=== PATIENT | female | born 1990 | race Caucasian/White ===

== ENCOUNTER 2016-07-03 14:03 | Inpatient (IN) | payer OTHER ==
[2016-07-03 17:43] VITALS: BMI 28.7
--- NOTE | 2016-07-03 18:10 | HP ---
Admission ROS S - [facility] Chief Complaint: I WANT TO GO TO REHAB Allergies/Adverse Reactions: Allergies Allergy/AdvReac Type Severity Reaction Status Date / Time Penicillins Allergy Rash Verified 06/17/16 13:36 haloperidol lactate AdvReac Severe stiffness Verified 06/17/16 13:36 [From Haldol] risperidone [From Risperdal] AdvReac Difficulty Verified 06/17/16 13:36 Breathing History of Present Illness: 25 YEARS OLD FEMALE WITH LONG HISTORY OF ALCOHOL NICOTINE DEPENDENCE DENIES MEDICAL HAS BIPOLAR IS ADMITTED TO REHAB Exam Limitations: No Limitations - Ebola screening Have you traveled outside of the country in the last 21 days: No Have you had contact with anyone from an Ebola affected area: No Have you been sick,other than usual withdrawal symptoms: No Do you have a fever: No - Review of Systems Constitutional: Weight Stable EENT: reports: No Symptoms Reported Respiratory: reports: Cough Cardiac: reports: Palpitations GI: reports: No Symptoms Reported : reports: Flank Pain Musculoskeletal: reports: Back Pain (FREQUENT FALL RELATED TO ALCOHOL INTOX) Integumentary: reports: Change in Color (FEET AXILLARIES) Neuro: reports: No Symptoms reported Endocrine: reports: No Symptoms Reported Hematology: reports: No Symptoms Reported Psychiatric: reports: Judgement Intact, Orientated x3, Anxious, Depressed Other Systems: Reviewed and Negative Patient History - Patient Medical History Hx Anemia: No Hx Asthma: Yes (Uses Albuterol Inhaler.) Hx Chronic Obstructive Pulmonary Disease (COPD): No Hx Cancer: No Hx Cardiac Disorders: No Hx Congestive Heart Failure: No Hx Hypertension: No Hx Hypercholesterolemia: No Hx Pacemaker: No HX Cerebrovascular Accident: No Hx Seizures: No Hx Dementia: No Hx Diabetes: No Hx Gastrointestinal Disorders: No Hx Liver Disease: No Hx Genitourinary Disorders: No Hx Sexually Transmitted Disorders: No Hx Renal Disease (ESRD): No Hx Thyroid Disease: No Hx Human Immunodeficiency Virus (HIV): No (Last tested: 05/2016: NEGATIVE.) Hx Hepatitis C: No (Last tested: 05/2016: NEGATIVE.) Hx Depression: No Hx Suicide Attempt: No (DENIES; AND DENIES CURRENT SI / HI.) Hx Bipolar Disorder: Yes Hx Schizophrenia: No - Patient Surgical History Past Surgical History: No - PPD History Previous Implant?: Yes Documented Results: Negative w/proof Implanted On Prior R Admission?: Yes Date: 05/18/16 Results: 0 mm PPD to be Administered?: No - Reproductive History Patient is a Female of Child Bearing Age (11 -55 yrs old): No Last Menstrual Period: 05/03/16 (DEPT SHOOT) Patient : No - Smoking Cessation Smoking history: Current every day smoker Have you smoked in the past 12 months: Yes Aproximately how many cigarettes per day: 3 Cigars Per Day: 0 Hx Chewing Tobacco Use: No Initiated information on smoking cessation: Yes 'Breaking Loose' booklet given: 07/03/16 - Substance & Tx. History Hx Alcohol Use: Yes Hx Substance Use: No Substance Use Type: Alcohol, Cocaine Hx Substance Use Treatment: Yes - Substances Abused Alcohol Route: Oral Frequency: Daily Amount used: QUAT DELMER Age of first use: 10 Date of Last Use: 06/28/16 Family Disease History - Family Disease History Family Disease History: Diabetes: Grandparent (LIVER CANCER-), Heart Disease: Father (Hx. Sub. Use; Heart surgery.), Brother (Genetic Defect.), CA: Grandparent, Other: Son (Panic Attacks.) Admission Physical Exam S - Vital Signs Vital Signs: Vital Signs - 24 hr 07/03/16 17:40 Temperature 98.7 F Pulse Rate 91 H Respiratory 18 Rate Blood Pressure 118/75 - Physical General Appearance: Yes: No Apparent Distress, Nourished, Appropriately Dressed HEENTM: Yes: Hearing grossly Normal, Normal ENT Inspection, Normocephalic, Normal Voice Respiratory: Yes: Chest Non-Tender, Lungs Clear, Normal Breath Sounds, No Respiratory Distress, No Accessory Muscle Use Neck: Yes: Supple, Trachea in good position Breast: Yes: Breasts Symetrical Cardiology: Yes: Regular Rhythm, S1, S2, Tachycardia Abdominal: Yes: Non Tender, Soft Genitourinary: Yes: Within Normal Limits Back: Yes: Normal Inspection Musculoskeletal: Yes: full range of Motion, Gait Steady Extremities: Yes: Normal Inspection, Normal Range of Motion, Non-Tender Neurological: Yes: Fully Oriented, Alert, Motor Strength 5/5, Normal Response, Depressed Affect Integumentary: Yes: Normal Color, Warm Lymphatic: Yes: Within Normal Limits - Diagnostic (1) Alcohol dependence with uncomplicated withdrawal Current Visit: Yes Status: Acute (2) Asthma Current Visit: Yes Status: Acute Qualifiers: Asthma severity: mild intermittent Asthma complication type: uncomplicated Qualified Code(s): J45.20 - Mild intermittent asthma, uncomplicated (3) Bipolar II disorder Current Visit: Yes Status: Suspected (4) Nicotine dependence Current Visit: Yes Status: Acute Qualifiers: Nicotine product type: cigarettes Substance use status: uncomplicated Qualified Code(s): F17.210 - Nicotine dependence, cigarettes, uncomplicated (5) Fungal dermatosis Current Visit: Yes Status: Acute Cleared for Admission [facility] - Detox or Rehab [facility] Level of Care: Observation Bed Claeared for Rehab Admission: Yes [facility] Breath Alcohol Content Breath Alcohol Content: 0 Urine Drug Screen - Results Drug Screen Negative: No Urine Drug Screen Results: ALTAGRACIA-Cocaine, BZO-Benzodiazepines
[2016-07-03] MEDS ORDERED: MAGNESIUM HYDROX 2400MG/30ML ORAL SUSPENSION 30 ML CUP PO PRN (18:18)
[2016-07-03] MEDS ORDERED: P-EPHED 60MG/TRIPROLIDI 2.5MG TABLET PO PRN (18:18)
[2016-07-03] MEDS ORDERED: ACETAMINOPHEN 325 MG TABLET (FP) PO PRN (18:18)
[2016-07-03] MEDS ORDERED: NICOTINE 14 MG/24 HOURS TOPICAL PATCH TD PRN (18:18)
[2016-07-03] MEDS ORDERED: guaiFENesin/D-METHORPHAN HB 10 ML UNIT-DOSE CUPS PO PRN (18:18)
[2016-07-03] MEDS ORDERED: NICOTINE POLACRILEX 2 MG GUM BC PRN (18:18)
[2016-07-03] MEDS ORDERED: LOPERAMIDE HCL 2 MG CAPSULE PO PRN (18:18)
[2016-07-03] MEDS ORDERED: MAGNESIUM CITRATE 300 ML BOTTLE PO PRN (18:18)
[2016-07-03] MEDS ORDERED: MAG HYDROX/AL HYDROX/SIMETH 30 ML UNIT-DOSE CUP PO PRN (18:18)
[2016-07-03] MEDS ORDERED: MENTHOL/PHENOL 1 EACH UD MM PRN (18:18)
[2016-07-03] MEDS ORDERED: hydrOXYzine PAMOATE 50 MG CAPSULE (FP) PO PRN (18:18)
[2016-07-03] MEDS ORDERED: COLLOIDAL OATMEAL 1 BAR EACH TP PRN (18:21)
[2016-07-03] MEDS ORDERED: ALBUTEROL SO4 6.7 GM HFA INHALER IH PRN (18:27)
[2016-07-03] MEDS ORDERED: DOCUSATE SODIUM 100 MG CAPSULE (FP) PO PRN (18:27)
[2016-07-03] MEDS ORDERED: ALBUTEROL SO4 2.5/IPRATROPIUM 0.5 INH SOL 3 ML VIAL.NEB. NEB PRN (18:27)
[2016-07-03] MEDS: THIAMINE HCL 100 MG TABLET (FP) PO SCH (22:58)
[2016-07-03] MEDS: CLOTRIMAZOLE 1% CREAM 15 GM TUBE TP SCH (22:58)
[2016-07-03] MEDS: diphenhydrAMINE HCL 50 MG CAPSULE PO PRN (22:58)
[2016-07-03] MEDS: MINERAL OIL/PETROLAT/WATER TOPICAL CREAM 113 GM JAR TP SCH (22:59)
[2016-07-03 23:05] LABS: URINE APPEARANCE CLEAR; URINE BILIRUBIN NEGATIVE (NEGATIVE); URINE BLOOD NEGATIVE (NEGATIVE); URINE COLOR STRAW; URINE GLUCOSE (UA) NEGATIVE (NEGATIVE); URINE KETONE NEGATIVE (NEGATIVE); URINE LEUK ESTERASE NEGATIVE (NEGATIVE); URINE NITRITE NEGATIVE (NEGATIVE); URINE PROTEIN NEGATIVE (NEGATIVE); URINE UROBILINOGEN NEGATIVE E.U./dl (0.2-1.0)
--- NOTE | 2016-07-04 10:03 | HP ---
[id number] Identifying data: This is the third admission to [address] [place] [address] for this 25 years old H female single mother of 2(children reside with the patient's father).patient is unemployed,supported by [facility], resides with family. Medical History: Significant for BA. Psychiatric History: First contact with psychiatrist since childhood due to behavioral problems.Reports first psychiatric hospitalization at 10 years old provoked by agitation,anger issues,mood instability.[facility]She was placed on psychotropics.Patient reports 4 more psychiatric admissions.Most recent admission was in 2016 to [facility] in [facility].She is currently under psychiatric care at [facility].Medications:Seroquel 50 mg po hs. Vital Signs: Vital Signs - 24 hr 07/03/16 07/04/16 07/04/16 17:40 00:30 03:30 Temperature 98.7 F Pulse Rate 91 H Respiratory 18 18 18 Rate Blood Pressure 118/75 07/04/16 07:53 Temperature 97.2 F L Pulse Rate 87 Respiratory 18 Rate Blood Pressure 114/74 Allergies/Adverse Reactions: Allergies Allergy/AdvReac Type Severity Reaction Status Date / Time Penicillins Allergy Rash Verified 07/03/16 18:35 haloperidol lactate AdvReac Severe stiffness Verified 07/03/16 18:35 [From Haldol] risperidone [From Risperdal] AdvReac Difficulty Verified 07/03/16 18:35 Breathing Date of last physical exam: 07/03/16 Concur with the findings of this exam: Yes - Substance Abuse/Tx History Hx Alcohol Use: Yes (reports drinking since 10 yo,mostly beer,whiskey) Hx Substance Use: Yes (marijuana since school age) Substance Use Type: Alcohol, Cocaine Hx Substance Use Treatment: Yes (left AMA this program in May 2016) - Admission Criteria Previous failed treatment: Yes Poor recovery environment: Yes Comorbidities: Yes Lacks judgement: Yes Mental Status Exam - Mental Status Exam Alert and Oriented to: Time, Place, Person Cognitive Function: Grossly Intact Patient Appearance: Well Groomed Mood: Suspicious, Anxious Affect: Labile Patient Behavior: Cooperative Speech Pattern: Clear Voice Loudness: Normal Thought Process: Goal Oriented Thought Disorder: Being Controlled Hallucinations: Denies Suicidal Ideation: Denies Homicidal Ideation: Denies Insight/Judgement: Fair Sleep: Difficulty falling asleep Appetite: Good Muscle strength/Tone: Normal Gait/Station: Normal Psychiatric Findings - Problem List (Russell 1, 2,3) (1) Asthma Current Visit: Yes Status: Chronic Qualifiers: Asthma severity: mild intermittent Asthma complication type: uncomplicated Qualified Code(s): J45.20 - Mild intermittent asthma, uncomplicated (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 (3) Nicotine dependence Current Visit: Yes Status: Chronic Qualifiers: Nicotine product type: cigarettes Substance use status: uncomplicated Qualified Code(s): F17.210 - Nicotine dependence, cigarettes, uncomplicated (4) Bipolar II disorder Current Visit: Yes Status: Chronic (5) Alcohol dependence Current Visit: Yes Status: Chronic Qualifiers: Substance use status: in remission Qualified Code(s): F10.21 - Alcohol dependence, in remission (6) Cocaine dependence Current Visit: Yes Status: Chronic Qualifiers: Substance use status: uncomplicated Qualified Code(s): F14.20 - Cocaine dependence, uncomplicated - Initial Treatment Plan Initial Treatment Plan: Seroquel 50 mg po hs.Will monitor progress.
[2016-07-04] MEDS: PRENATAL VITAMINS W/ FOLIC ACID TABLET (FP) PO SCH (10:45)
[2016-07-04 11:23] LABS: MCHC 34.1 g/dl (32.0-36.0); MEAN CELL VOLUME 88.1 fl (80-96); MEAN PLT VOLUME 7.5 fl (7.5-11.1); PLATELET COUNT 370 K/MM3 (134-434); RDW 13.8 % (11.6-15.6)
[2016-07-04] MEDS: CLOTRIMAZOLE 1% CREAM 15 GM TUBE TP SCH ×2 (11:25→21:33)
[2016-07-04 11:34] LABS: ALBUMIN 3.6 g/dl (3.4-5.0); ALK PHOS 99 U/L (45-117); ANION GAP 9 (8-16); BILIRUBIN,TOTAL 0.5 mg/dL (0.2-1.0); CALCIUM 9.2 mg/dL (8.5-10.1); CO2 27 mmol/L (21-32); CREATININE 0.9 mg/dL (0.55-1.02); GLUCOSE,RANDOM 92 mg/dL (74-106); SGOT/AST 15 U/L (15-37); SGPT/ALT 31 U/L (12-78); TOT PROT 7.2 g/dl (6.4-8.2)
[2016-07-04 13:16] LABS: HIV 1 & 2 AB NEGATIVE; HIV 1 AGp24 NEGATIVE
[2016-07-04] MEDS: MINERAL OIL/PETROLAT/WATER TOPICAL CREAM 113 GM JAR TP SCH (21:31)
[2016-07-04] MEDS: THIAMINE HCL 100 MG TABLET (FP) PO SCH (21:31)
[2016-07-04] MEDS: QUEtiapine FUMARATE 50 MG TABLET PO SCH (21:31)
[2016-07-05] MEDS: IBUPROFEN 400 MG TABLET (FP) PO PRN (09:45)
[2016-07-05] MEDS: CLOTRIMAZOLE 1% CREAM 15 GM TUBE TP SCH ×2 (09:46→22:11)
[2016-07-05] MEDS: PRENATAL VITAMINS W/ FOLIC ACID TABLET (FP) PO SCH (09:46)
[2016-07-05] MEDS: THIAMINE HCL 100 MG TABLET (FP) PO SCH (22:10)
[2016-07-05] MEDS: QUEtiapine FUMARATE 50 MG TABLET PO SCH (22:10)
[2016-07-05] MEDS: METHYL SALICYLATE/MENTHOL OINT 30 GM TUBE TP SCH (22:10)
[2016-07-05] MEDS: MINERAL OIL/PETROLAT/WATER TOPICAL CREAM 113 GM JAR TP SCH (22:12)
[2016-07-05] MEDS: SODIUM CHLORIDE NASAL SPRAY 44 ML BOTTLE NS SCH (22:14)
[2016-07-06] MEDS: CLOTRIMAZOLE 1% CREAM 15 GM TUBE TP SCH ×2 (10:55→21:53)
[2016-07-06] MEDS: METHYL SALICYLATE/MENTHOL OINT 30 GM TUBE TP SCH ×2 (10:55→21:53)
[2016-07-06] MEDS: PRENATAL VITAMINS W/ FOLIC ACID TABLET (FP) PO SCH (10:56)
[2016-07-06] MEDS: IBUPROFEN 400 MG TABLET (FP) PO PRN (10:57)
[2016-07-06] MEDS: SODIUM CHLORIDE NASAL SPRAY 44 ML BOTTLE NS SCH ×2 (11:00→21:53)
[2016-07-06] MEDS: MINERAL OIL/PETROLAT/WATER TOPICAL CREAM 113 GM JAR TP SCH (21:55)
[2016-07-06] MEDS: QUEtiapine FUMARATE 50 MG TABLET PO SCH (21:56)
[2016-07-06] MEDS: THIAMINE HCL 100 MG TABLET (FP) PO SCH (21:56)
[2016-07-06] MEDS: diphenhydrAMINE HCL 50 MG CAPSULE PO PRN (21:57)
[2016-07-07] MEDS: IBUPROFEN 400 MG TABLET (FP) PO PRN (08:43)
[2016-07-07] MEDS: PRENATAL VITAMINS W/ FOLIC ACID TABLET (FP) PO SCH (10:54)
[2016-07-07] MEDS: CLOTRIMAZOLE 1% CREAM 15 GM TUBE TP SCH ×2 (10:54→22:06)
[2016-07-07] MEDS: METHYL SALICYLATE/MENTHOL OINT 30 GM TUBE TP SCH ×2 (10:55→22:08)
[2016-07-07] MEDS: SODIUM CHLORIDE NASAL SPRAY 44 ML BOTTLE NS SCH ×2 (10:55→22:05)
[2016-07-07] MEDS: QUEtiapine FUMARATE 50 MG TABLET PO SCH (22:05)
[2016-07-07] MEDS: THIAMINE HCL 100 MG TABLET (FP) PO SCH (22:05)
[2016-07-07] MEDS: MINERAL OIL/PETROLAT/WATER TOPICAL CREAM 113 GM JAR TP SCH (22:08)
[2016-07-08] MEDS: CLOTRIMAZOLE 1% CREAM 15 GM TUBE TP SCH ×2 (10:52→21:53)
[2016-07-08] MEDS: PRENATAL VITAMINS W/ FOLIC ACID TABLET (FP) PO SCH (10:52)
[2016-07-08] MEDS: METHYL SALICYLATE/MENTHOL OINT 30 GM TUBE TP SCH ×2 (10:52→21:53)
[2016-07-08] MEDS: SODIUM CHLORIDE NASAL SPRAY 44 ML BOTTLE NS SCH ×2 (10:52→21:52)
[2016-07-08] MEDS: QUEtiapine FUMARATE 50 MG TABLET PO SCH (21:52)
[2016-07-08] MEDS: THIAMINE HCL 100 MG TABLET (FP) PO SCH (21:52)
[2016-07-08] MEDS: MINERAL OIL/PETROLAT/WATER TOPICAL CREAM 113 GM JAR TP SCH (21:54)
[2016-07-09] MEDS: SODIUM CHLORIDE NASAL SPRAY 44 ML BOTTLE NS SCH ×2 (10:33→21:42)
[2016-07-09] MEDS: PRENATAL VITAMINS W/ FOLIC ACID TABLET (FP) PO SCH (10:34)
[2016-07-09] MEDS: CLOTRIMAZOLE 1% CREAM 15 GM TUBE TP SCH ×2 (10:34→21:43)
[2016-07-09] MEDS: METHYL SALICYLATE/MENTHOL OINT 30 GM TUBE TP SCH ×2 (10:34→21:45)
[2016-07-09] MEDS: IBUPROFEN 400 MG TABLET (FP) PO PRN (10:44)
[2016-07-09] MEDS: THIAMINE HCL 100 MG TABLET (FP) PO SCH (21:42)
[2016-07-09] MEDS: QUEtiapine FUMARATE 50 MG TABLET PO SCH (21:42)
[2016-07-09] MEDS: MINERAL OIL/PETROLAT/WATER TOPICAL CREAM 113 GM JAR TP SCH (21:43)
[2016-07-09] MEDS: diphenhydrAMINE HCL 50 MG CAPSULE PO PRN (22:59)
[2016-07-10] MEDS: PRENATAL VITAMINS W/ FOLIC ACID TABLET (FP) PO SCH (10:10)
[2016-07-10] MEDS: CLOTRIMAZOLE 1% CREAM 15 GM TUBE TP SCH ×2 (10:11→21:49)
[2016-07-10] MEDS: METHYL SALICYLATE/MENTHOL OINT 30 GM TUBE TP SCH ×2 (10:11→21:50)
[2016-07-10] MEDS: SODIUM CHLORIDE NASAL SPRAY 44 ML BOTTLE NS SCH ×2 (10:11→21:49)
[2016-07-10] MEDS ORDERED: DOCUSATE SODIUM 100 MG CAPSULE (FP) PO ONE (14:28)
[2016-07-10] MEDS: QUEtiapine FUMARATE 50 MG TABLET PO SCH (21:48)
[2016-07-10] MEDS: THIAMINE HCL 100 MG TABLET (FP) PO SCH (21:48)
[2016-07-10] MEDS: DOCUSATE SODIUM 100 MG CAPSULE (FP) PO SCH (21:48)
[2016-07-10] MEDS: MINERAL OIL/PETROLAT/WATER TOPICAL CREAM 113 GM JAR TP SCH (21:49)
[2016-07-10] MEDS: diphenhydrAMINE HCL 50 MG CAPSULE PO PRN (22:44)
[2016-07-11 09:50] VITALS: BP 120/78; PULSE 101; TEMP 97.7
[2016-07-11] MEDS: DOCUSATE SODIUM 100 MG CAPSULE (FP) PO SCH (10:44)
[2016-07-11] MEDS: CLOTRIMAZOLE 1% CREAM 15 GM TUBE TP SCH (10:44)
[2016-07-11] MEDS: METHYL SALICYLATE/MENTHOL OINT 30 GM TUBE TP SCH (10:44)
[2016-07-11] MEDS: PRENATAL VITAMINS W/ FOLIC ACID TABLET (FP) PO SCH (10:44)
[2016-07-11] MEDS: SODIUM CHLORIDE NASAL SPRAY 44 ML BOTTLE NS SCH (10:44)
--- NOTE | 2016-07-11 15:00 | PN ---
[facility] Progress Note Note: PT. HAS HX. OF BORDERLINE DM. SHE TOOK METFORMIN FOR FEW MONTH THEN STOPPED BECAUSE BLOOD SUGAR WAS NORMAL. Laboratory Tests 07/03/16 07/04/16 07/04/16 21:58 06:30 06:30 WBC 9.0 D RBC 4.59 Hgb 13.8 Hct 40.5 MCV 88.1 MCHC 34.1 RDW 13.8 Plt Count 370 MPV 7.5 Sodium 140 Potassium 4.2 Chloride 104 Carbon Dioxide 27 Anion Gap 9 BUN 7 D Creatinine 0.9 Creat Clearance w eGFR > 60 POC Glucometer Random Glucose 92 Calcium 9.2 Total Bilirubin 0.5 D AST 15 D ALT 31 Alkaline Phosphatase 99 Total Protein 7.2 Albumin 3.6 Urine Color Straw Urine Appearance Clear Urine pH 7.0 Ur Specific [place] 1.008 Urine Protein Negative Urine Glucose (UA) Negative Urine Ketones Negative Urine Blood Negative Urine Nitrite Negative Urine Bilirubin Negative Urine Urobilinogen Negative Ur Leukocyte Esterase Negative RPR Titer HIV 1&2 Antibody Screen HIV P24 Antigen 07/04/16 07/04/16 07/11/16 06:30 08:30 09:48 WBC RBC Hgb Hct MCV MCHC RDW Plt Count MPV Sodium Potassium Chloride Carbon Dioxide Anion Gap BUN Creatinine Creat Clearance w eGFR POC Glucometer 131 Random Glucose Calcium Total Bilirubin AST ALT Alkaline Phosphatase Total Protein Albumin Urine Color Urine Appearance Urine pH Ur Specific [place] Urine Protein Urine Glucose (UA) Urine Ketones Urine Blood Urine Nitrite Urine Bilirubin Urine Urobilinogen Ur Leukocyte Esterase RPR Titer Nonreactive HIV 1&2 Antibody Screen Negative HIV P24 Antigen Negative P : BGM BID
--- NOTE | 2016-07-11 21:20 | PN ---
[facility] Progress Note Note: Patient left this program today(early discharge).Since she didnt want to [facility].She has met her treatment goals partially and will continue to address her issues on outpatient basis.Patient will continue current medications as per plan.Scripts for 30 days provided.Patient is stable for discharge today.
== END 2016-07-11 19:30 | disposition home or self-care (01) | DRG 772 ==
LOC: YASAS 14:03 → Y3E 19:42
PROVIDERS: ADMIT Psychiatry & Neurology Psychiatry; ATTEND Psychiatry & Neurology Psychiatry
PROC: HZ42ZZZ Group Counseling for Substance Abuse Treatment, Cognitive-Behavioral (ICD-10-PCS; principal; 2016-07-03)
DX: F10.20 Alcohol dependence, uncomplicated (principal); F14.20 Cocaine dependence, uncomplicated; F17.210 Nicotine dependence, cigarettes, uncomplicated; F31.81 Bipolar II disorder; J45.20 Mild intermittent asthma, uncomplicated; R73.03 Prediabetes; L98.8 Other specified disorders of the skin and subcutaneous tissue; R00.0 Tachycardia, unspecified
CPT/HCPCS: 36415; 80053; 81003; 85027; 86593; 87389; 93005; 93010

== ENCOUNTER 2018-05-28 11:16 | Inpatient (IN) | payer OTHER ==
--- NOTE | 2018-05-28 12:43 | PN ---
S Progress Note Note: during assessment pt was wrenching, yelling and screaming of extreme abdominal pain. pt keeps tugging at her lower abdominal for some comfort. Pt states she has a recent in March 2018 c/o that the incision is opening. There is a small dehiscence noted to the mid section of her incision. Report given to Dr. Browning at [facility] for report.
[2018-05-28 18:06] VITALS: BMI 36.2
--- NOTE | 2018-05-28 23:52 | HP ---
"CIWA Score Nausea/Vomitin Muscle Tremors: 4-Moderate,w/Arms Extend Anxiety: 4-Mod. Anxious/Guarded Agitation: 4-Moderately Restless Paroxysmal Sweats: 3 (Facial sweating w/o beads) Orientation: 1-Uncertain about Date Tacttile Disturbances: 0-None Auditory Disturbances: 0-None Visual Disturbances: 0-None Headache: 2-Mild CIWA-Ar Total Score: 21 - Admission Criteria OASAS Guidelines: Admission for Medically Managed Detox: Requires at least one of the followin. CIWA greater than 12 2. Seizures within the past 24 hours 3. Delirium tremens within the past 24 hours 4. Hallucinations within the past 24 hours 5. Acute intervention needed for co occurring medical disorder 6. Acute intervention needed for co occurring psychiatric disorder 7. Severe withdrawal that cannot be handled at a lower level of care (continued vomiting, continued diarrhea, abnormal vital signs) requiring intravenous medication and/or fluids 8. Patient presents the following: CIWA greater than 12 Admission Criteria Met: Admission criteria met Admission ROS [facility] Chief Complaint: Here for alcohol withdrawal. Allergies/Adverse Reactions: Allergies Allergy/AdvReac Type Severity Reaction Status Date / Time Penicillins Allergy Rash Verified 05/28/18 15:40 haloperidol lactate AdvReac Severe stiffness Verified 05/28/18 15:40 [From Haldol] risperidone [From Risperdal] AdvReac Difficulty Verified 05/28/18 15:40 Breathing History of Present Illness: [facility] here for detox. Alcohol use since age 12. Cocaine use since age 14. Nicotine use since age 10. Past hx THC and heroin use disorder. Denies seizures or overdose. [facility] has had blackouts in the past. Seen earlier today at [facility] for c/o severe abdominal pain. Routine bloods drawn and wnl. Discharged to [facility] for detox. Post-: [facility] delivered, on 05/11/18, a healthy baby who did not require detox, via . [facility] was infected. States having vaginal bleeding. Hx: asthma, DM, palpitations, constipation. Hx bipolar disorder and on medications. [facility] has a provider Denies thoughts of harming self or others. Search Terms: Janine Rhoades, 1990 Search Date: 05/29/2018 12:34:38 AM The Drug Utilization Report below displays all of the controlled substance prescriptions, if any, that your patient has filled in the last twelve months. The information displayed on this report is compiled from pharmacy submissions to the Department, and accurately reflects the information as submitted by the pharmacies. This report was requested by: Alona Langston | Reference #: [id number] Others' Prescriptions Patient Name: Janine Rhoades Date: 1990 Address: [address] [address] Sex: Female Rx Written Rx Dispensed Drug Quantity Days Supply Prescriber Name 04/11/2018 05/03/2018 oxycodone-acetaminophen 5-325 mg tablet 20 5 [place] , Mini Patient Name: Janine Rhoades Date: 1990 Address: [address] [place] [address] Sex: Female Rx Written Rx Dispensed Drug Quantity Days Supply Prescriber Name 04/14/2018 04/14/2018 oxycodone-acetaminophen 5-325 mg tablet 20 5 [place] , Mini Exam Limitations: No Limitations - Ebola screening Have you traveled outside of the country in the last 21 days: No Have you had contact with anyone from an Ebola affected area: No Have you been sick,other than usual withdrawal symptoms: No Do you have a fever: No - Review of Systems Constitutional: Diaphoresis EENT: reports: No Symptoms Reported, Nose Congestion (w/ runny nose) Respiratory: reports: Cough (Cough x 2 days - clear phlegm), Other (Hx asthma. No SOB/Wheeze at this time) Cardiac: reports: Palpitations (r/t anxiety and/or difficulty breathing) GI: reports: Constipated (On colace), Nausea : reports: Other (Vaginal bleeding) Musculoskeletal: reports: Back Pain (LBP x 1 week r/t fall) Integumentary: reports: No Symptoms Reported Neuro: reports: Headache, Tremors Endocrine: reports: No Symptoms Reported Hematology: reports: No Symptoms Reported Psychiatric: reports: Judgement Intact, Agitated, Anxious, Disorientated ( Missed date by 2 days) Patient History - Patient Medical History Hx Anemia: No Hx Asthma: Yes Hx Chronic Obstructive Pulmonary Disease (COPD): No Hx Cancer: No Hx Cardiac Disorders: No Hx Congestive Heart Failure: No Hx Hypertension: No Hx Hypercholesterolemia: No Hx Pacemaker: No HX Cerebrovascular Accident: No Hx Seizures: No Hx Dementia: No Hx Diabetes: No Hx Gastrointestinal Disorders: No Hx Liver Disease: No Hx Genitourinary Disorders: No Hx Sexually Transmitted Disorders: No Hx Renal Disease (ESRD): No Hx Thyroid Disease: No Hx Human Immunodeficiency Virus (HIV): No (Last tested: 05/2016: NEGATIVE.) Hx Hepatitis C: No (Last tested: 05/2016: NEGATIVE.) Hx Depression: Yes Hx Suicide Attempt: No Hx Bipolar Disorder: Yes Hx Schizophrenia: No - Patient Surgical History Past Surgical History: Yes Anesthesia Reaction: No - PPD History Previous Implant?: Yes Documented Results: Negative w/proof Implanted On Prior R Admission?: Yes Date: 05/18/16 Results: 0 mm PPD to be Administered?: Yes - Reproductive History Last Menstrual Period: 05/03/16 LMP comment: Currently having vaginal bleeding Patient : No (POST 04/10/18) - Smoking Cessation Smoking history: Current every day smoker Have you smoked in the past 12 months: Yes Aproximately how many cigarettes per day: 3 Cigars Per Day: 0 Hx Chewing Tobacco Use: No Initiated information on smoking cessation: Yes 'Breaking Loose' booklet given: 05/28/18 - Substance & Tx. History Hx Alcohol Use: Yes Hx Substance Use: Yes Substance Use Type: Alcohol, Cocaine, Heroin, Marijuana Hx Substance Use Treatment: Yes (detox, ) - Substances Abused Alcohol Route: Oral Frequency: Daily Amount used: 5 BEERS Age of first use: 12 Date of Last Use: 05/27/18 Cocaine Route: Smoking Frequency: Daily Amount used: 2/20 Age of first use: 14 Date of Last Use: 05/27/18 Family Disease History - Family Disease History Family Disease History: Diabetes: Grandparent (LIVER CANCER-), Heart Disease: Father (Hx. Sub. Use; Heart surgery.), Brother (Genetic Defect.), CA: Grandparent, Other: Son (Panic Attacks.) Admission Physical Exam BHS - Vital Signs Vital Signs: Vital Signs - 24 hr 05/28/18 18:03 Temperature 98.2 F Pulse Rate 89 Respiratory 20 Rate Blood Pressure 146/75 - Physical General Appearance: Yes: Appropriately Dressed, Moderate Distress, Tremorous, Irritable, Sweating, Anxious HEENTM: Yes: EOMI, Normal Voice, MIKE, Nasal Congestion (Clear nasal discharge) , Other (Perforated nasal septum; Tongue and lip piercising w/ hardware.) Respiratory: Yes: Chest Non-Tender, Lungs Clear, Normal Breath Sounds, No Respiratory Distress Neck: Yes: No masses,lesions,Nodules, Supple Breast: Yes: Breast Exam Deferred Cardiology: Yes: Regular Rhythm, Regular Rate, S1, S2 Abdominal: Yes: Increased Bowel Sounds, Protuberent (Increased abdominal adiposity), Other (Lower abdominal surgical incision intact except at center where small amount of clearish drainage is noted.) Genitourinary: Yes: Other (No vaginal discharge present at this time. Fundus non -palpable. incision line approximated escept for mid-center opening approximately 1 cm.) Back: Yes: Normal Inspection Musculoskeletal: Yes: full range of Motion, Gait Steady Extremities: Yes: Normal Capillary Refill, Normal Inspection, Normal Range of Motion, Non-Tender, Tremors (Tremors of hands when arms extended) Neurological: Yes: quarter folder II-XII NML intact, Alert, Motor Strength 5/5, Normal Mood /Affect Integumentary: Yes: Normal Color, Dry, Warm, Diaphoresis (Sweating of forehead) , Other (Lower abdominal surgical incision, at site, intact except at center where small amount of clearish drainage is noted.) Lymphatic: Yes: Within Normal Limits - Diagnostic (1) Other specified postprocedural states Current Visit: Yes Status: Chronic Comment: incision line non- approximated at mid center. (2) Nasal congestion Current Visit: Yes Status: Acute (3) Perforated nasal septum Current Visit: Yes Status: Chronic (4) Alcohol dependence with uncomplicated withdrawal Current Visit: Yes Status: Acute (5) Asthma Current Visit: Yes Status: Chronic Qualifiers: Asthma severity: mild Asthma persistence: intermittent Asthma complication type: uncomplicated Qualified Code(s): J45.20 - Mild intermittent asthma, uncomplicated (6) Cocaine dependence Current Visit: Yes Status: Chronic Qualifiers: Substance use status: uncomplicated Qualified Code(s): F14.20 - Cocaine dependence, uncomplicated (7) Nicotine dependence Current Visit: Yes Status: Chronic Qualifiers: Nicotine product type: cigarettes Substance use status: uncomplicated Qualified Code(s): F17.210 - Nicotine dependence, cigarettes, uncomplicated Cleared for Admission BHS - Detox or Rehab [facility] Level of Care: Medically Managed Detox Regimen/Protocol: Librium [facility] Breath Alcohol Content Breath Alcohol Content: 0 Urine Pregancy Test - Result Urine Test Results: Negative- NO Line Present Urine Drug Screen - Results Drug Screen Negative: No Urine Drug Screen Results: ALTAGRACIA-Cocaine"
[2018-05-29] MEDS ORDERED: chlordiazePOXIDE HCL 25 MG CAPSULE PO ONE (00:50)
[2018-05-29] MEDS ORDERED: MAGNESIUM CITRATE 300 ML BOTTLE PO PRN (00:50)
[2018-05-29] MEDS ORDERED: ACETAMINOPHEN 325 MG TABLET (FP) PO PRN (00:50)
[2018-05-29] MEDS ORDERED: MENTHOL/PHENOL 1 EACH UD MM PRN (00:50)
[2018-05-29] MEDS ORDERED: IBUPROFEN 400 MG TABLET (FP) PO PRN (00:50)
[2018-05-29] MEDS ORDERED: NICOTINE POLACRILEX 2 MG GUM BC PRN (00:50)
[2018-05-29] MEDS ORDERED: LOPERAMIDE HCL 2 MG CAPSULE PO PRN (00:50)
[2018-05-29] MEDS ORDERED: P-EPHED 60MG/TRIPROLIDI 2.5MG TABLET PO PRN (00:50)
[2018-05-29] MEDS ORDERED: MAG HYDROX/AL HYDROX/SIMETH 30 ML UNIT-DOSE CUP PO PRN (00:50)
[2018-05-29] MEDS ORDERED: MAGNESIUM HYDROX 2400MG/30ML ORAL SUSPENSION 30 ML CUP PO PRN (00:50)
[2018-05-29] MEDS ORDERED: chlordiazePOXIDE HCL 25 MG CAPSULE PO PRN (00:50)
[2018-05-29] MEDS ORDERED: PETROLATUM, WHITE 30 GM TUBE TP PRN (00:57)
[2018-05-29] MEDS: ALBUTEROL SO4 0.083% IH SOL 2.5 MG/3 ML VIAL.NEB. NEB PRN ×2 (02:12→06:48)
[2018-05-29] MEDS: chlordiazePOXIDE HCL 25 MG CAPSULE PO SCH ×4 (06:18→22:55)
[2018-05-29] MEDS: metFORMIN HCL 500 MG TABLET (FP) PO SCH ×2 (06:20→17:48)
[2018-05-29] MEDS ORDERED: ALBUTEROL SO4 8 GM HFA INHALER IH PRN (07:03)
[2018-05-29] MEDS: PRENATAL VITAMINS W/ FOLIC ACID TABLET (FP) PO SCH (10:43)
[2018-05-29] MEDS: SULFAMETHOXAZOLE/TRIMETHOPRIM 800MG/160MG D.S. TABLET PO SCH ×2 (10:43→22:54)
[2018-05-29] MEDS: DOCUSATE SODIUM 100 MG CAPSULE (FP) PO SCH ×2 (10:43→22:54)
[2018-05-29] MEDS: POTASSIUM CHLORIDE TABS 20 MEQ TABLET.ER (FP) PO SCH (10:44)
[2018-05-29] MEDS: BACITRACIN 15 GM TUBE TOPICAL OINTMENT TP SCH (10:45)
--- NOTE | 2018-05-29 11:13 | PN ---
S CIWA - CIWA Score Nausea/Vomitin-No Nausea/No Vomiting Muscle Tremors: 3 Anxiety: 3 Agitation: 3 Paroxysmal Sweats: 3 Orientation: 0-Oriented Tacttile Disturbances: 0-None Auditory Disturbances: 0-None Visual Disturbances: 0-None Headache: 1-Very Mild CIWA-Ar Total Score: 13 BHS Progress Note (SOAP) Subjective: agitation sweats irritable interrupted sleep Objective: 05/29/18 11:12 Vital Signs Temperature 98.6 F 05/29/18 10:08 Pulse Rate 89 05/29/18 10:08 Respiratory Rate 18 05/29/18 10:08 Blood Pressure 148/84 05/29/18 10:08 O2 Sat by Pulse Oximetry (%) Laboratory Tests 05/29/18 05/29/18 01:47 06:17 POC Glucometer 182 146 rest of labs drawn at [place] [facility] yesterday; labs WNL aaox3 ambulating no acute distress Assessment: 05/29/18 11:13 withdrawal sx Plan: continue detox increase fluids
--- NOTE | 2018-05-29 16:29 | CONSULT ---
[facility] Psychiatric Consult - Data Date of interview: 05/29/18 Admission source: [facility] Identifying data: Patient is a 27 year old single female, mother of three, unemployed, and currently homeless. This is one of multiple admissions for patient. Patient admitted to for alcohol and cocaine dependence. Substance Abuse History: Smoking Cessation. Smoking history: Current every day smoker. Have you smoked in the past 12 months: Yes. Aproximately how many cigarettes per day: 3. Cigars Per Day: 0. Hx Chewing Tobacco Use: No. Initiated information on smoking cessation: Yes. 'Breaking Loose' booklet given : 05/28/18. - Substance & Tx. History. Hx Alcohol Use: Yes. Hx Substance Use : Yes. Substance Use Type: Alcohol, Cocaine, Heroin, Marijuana. Hx Substance Use Treatment: Yes (detox, ). - Substances Abused. Alcohol. Route: Oral. Frequency: Daily. Amount used: 5 BEERS. Age of first use: 12. Date of Last Use: 05/27/18. Cocaine. Route: Smoking. Frequency: Daily. Amount used: 20. Age of first use: 14. Date of Last Use: 05/27/18 Medical History: Asthma Psychiatric History: Patient unable to give marketing copywriter a cohesive psychiatric history secondary to fatigue. Patient reports one psychiatric hospitalization at [facility] on in 2016 due to depression after the of her grandmother. States current outpatient psychiatric care is provided at [facility] outpatient clinic. She reports being prescribed zyprexa 20mg + Albin 600mg BID but states she has not taken medications in over one week. Diagnosis of Bipolar disorder. [facility] pharmacy contacted at [phone] with patient's consent and marketing copywriter able to speak to pharmacist. As per pharmacist patient's most recent prescription was in July 2016 for abilify 15mg and trazodone 50mg. No records of zyprexa and lithium. Patient unable to provide adequate information. Pharmacy claims reviewed and noted past prescriptions of depakote, cogentin, trazdone and klonopin. Patient was prescribed seroquel during previous admission to detox in 2017. Patient denies h/o suicide attempt. Physical/Sexual Abuse/Trauma History: denies. Mental Status Exam - Mental Status Exam Alert and Oriented to: Time, Place, Person Cognitive Function: Good Patient Appearance: Well Groomed Mood: Withdrawn Affect: Mood Congruent Patient Behavior: Restless Speech Pattern: Delayed (Patient fatigue, responding slowly to marketing copywriter.) Voice Loudness: Normal Thought Process: Goal Oriented Thought Disorder: Not Present Hallucinations: Denies Suicidal Ideation: Denies Homicidal Ideation: Denies Insight/Judgement: Poor Sleep: Fair Appetite: Fair Muscle strength/Tone: Normal Gait/Station: Normal Psychiatric Findings - Problem List ([place] 1, 2,3) (1) Alcohol dependence with uncomplicated withdrawal Current Visit: Yes Status: Acute (2) Cocaine dependence Current Visit: Yes Status: Acute Qualifiers: Substance use status: uncomplicated Qualified Code(s): F14.20 - Cocaine dependence, uncomplicated (3) Bipolar II disorder Current Visit: Yes Status: Chronic Comment: As per history. - Initial Treatment Plan Initial Treatment Plan: Psychoeducation provided. Detoxification in progress. [facility] pharmacy contacted at [phone] with patient's consent and marketing copywriter able to speak to pharmacist. As per pharmacist patient's most recent prescription was in July 2016 for abilifty 15mg and trazodone 50mg. No records of zyprexa and lithium. Patient agreeable to accepting seroquel 50mg qhs. As per charts, patient has accepted seroquel while in detox. Verbal consent given.
[2018-05-29] MEDS ORDERED: THIAMINE HCL 100 MG TABLET (FP) PO SCH (22:00)
[2018-05-29] MEDS ORDERED: MELATONIN 5 MG TABLETS PO PRN (22:00)
[2018-05-30] MEDS: metFORMIN HCL 500 MG TABLET (FP) PO SCH ×2 (06:08→17:48)
[2018-05-30] MEDS: chlordiazePOXIDE HCL 25 MG CAPSULE PO SCH ×2 (06:08→13:53)
[2018-05-30] MEDS ORDERED: guaiFENesin 200 MG/10 ML 10 ML UNIT-DOSE CUPS PO PRN (07:12)
--- NOTE | 2018-05-30 11:30 | PN ---
S CIWA - CIWA Score Nausea/Vomitin-No Nausea/No Vomiting Muscle Tremors: 4-Moderate,w/Arms Extend Anxiety: 2 Agitation: 3 Paroxysmal Sweats: 2 Orientation: 0-Oriented Tacttile Disturbances: 0-None Auditory Disturbances: 0-None Visual Disturbances: 0-None Headache: 0-None Present CIWA-Ar Total Score: 11 S Progress Note (SOAP) Subjective: body aches tired sweats irritable Objective: 05/30/18 11:29 Vital Signs Temperature 98.4 F 05/30/18 10:15 Pulse Rate 99 H 05/30/18 10:15 Respiratory Rate 18 05/30/18 10:15 Blood Pressure 112/64 05/30/18 10:15 O2 Sat by Pulse Oximetry (%) Laboratory Tests 05/29/18 05/29/18 05/29/18 01:47 06:17 16:41 POC Glucometer 182 146 129 05/30/18 06:07 POC Glucometer 98 aaox3 ambulating no acute distress Assessment: 05/30/18 11:29 mild withdrawal sx Plan: continue detox increase fluids
[2018-05-30] MEDS: BACITRACIN 15 GM TUBE TOPICAL OINTMENT TP SCH (13:52)
[2018-05-30] MEDS: DOCUSATE SODIUM 100 MG CAPSULE (FP) PO SCH (13:53)
[2018-05-30] MEDS: POTASSIUM CHLORIDE TABS 20 MEQ TABLET.ER (FP) PO SCH (13:53)
[2018-05-30] MEDS: PRENATAL VITAMINS W/ FOLIC ACID TABLET (FP) PO SCH (13:53)
[2018-05-30] MEDS: SULFAMETHOXAZOLE/TRIMETHOPRIM 800MG/160MG D.S. TABLET PO SCH (13:53)
[2018-05-30 14:45] VITALS: BP 151/85; PULSE 101; TEMP 98.2
--- NOTE | 2018-05-30 18:09 | PN ---
S Progress Note (SOAP) Subjective: States wants to leave. States "I need air. I'm fine. I just want to leave". Discussed how this discharge would impact the patient's ability to get her and patient states "It doesn't matter. Patient admitted for alcohol use disorder, cocaine use disorder and also has a history of opiate and THC use. Discussed over-sedation and risks r/t to use of alcohol alone and in combination with cocaine and/or opiates opiates. Patient states "I'll be fine. I 've used dope before without problems". Patient insists on leaving AMA. Patient w/ recent prescription for antibiotics and will transmit prescription to patient's home pharmacy. Patient encouraged compliance w/ medications.
--- NOTE | 2018-05-30 18:38 | PN ---
[facility] Progress Note Note: States wants to leave. States "I need air. I'm fine. I just want to leave". Discussed how this discharge would impact the patient's ability to get her and patient states "It doesn't matter. Patient admitted for alcohol use disorder, cocaine use disorder and also has a history of opiate and THC use. Discussed over-sedation and risks r/t to use of alcohol alone and in combination with cocaine and/or opiates opiates. Patient states "I'll be fine. I 've used dope before without problems". Patient insists on leaving AMA. Patient w/ recent prescription for antibiotics and will transmit prescription to patient's home pharmacy. Patient encouraged compliance w/ medications.
--- NOTE | 2018-05-30 18:47 | DS ---
[facility] Detox Discharge Summary Admission Date: 05/29/18 Discharge Date: 05/30/18 - History Present History: Alcohol Dependence, Cocaine Dependence Additional Comments: Admitted w/ alcohol withdrawal w/ co-occurring cocaine use. Pertinent Past History: Additional substance use includes hx of THC and heroin use. (05/11/18) - . Hx asthma and mental health disorder. - Physical Exam Results Vital Signs: Vital Signs Temperature 98.2 F 05/30/18 14:43 Pulse Rate 101 H 05/30/18 14:43 Respiratory Rate 16 05/30/18 14:43 Blood Pressure 151/85 05/30/18 14:43 O2 Sat by Pulse Oximetry (%) Pertinent Admission Physical Exam Findings: Admitted for alcohol detox as presenting with withdrawal symptoms. Lower abdominal incision line, at site of , w/ a 1 cm non-approximated open area. Was seen at [facility], prior to admission, for c/o abdominal pain. Routine labs completed at [facility], prior to admission, were reviewed. CMP POC Glucometer 98 UNITS (80-120) 05/30/18 06:07 - Treatment Hospital Course: Detox Protocol Followed (Patient refused medications and did not complete detox protocol.), Discharged Condition Good (Patient is alert and oriented. Conversing clearly and appropriately. Gait steady.) - Medication Discharge Medications: Ambulatory Orders Albuterol Sulfate Inhaler - [Ventolin HFA Inhaler -] 2 inh IH Q4H PRN 11/25/14 [place] Carbonate [Eskalith -] 600 mg PO BID 05/28/18 Metformin HCl [Glucophage] 500 mg PO BID 05/28/18 Olanzapine [Zyprexa] 20 mg PO BID 05/28/18 Sulfamethoxazole/Trimethoprim [Bactrim DS -] 1 each PO BID #14 tablet 05/30/18 - Diagnosis (1) Other specified postprocedural states Status: Chronic (2) Nasal congestion Status: Acute (3) Perforated nasal septum Status: Chronic (4) Alcohol dependence with uncomplicated withdrawal Status: Acute (5) Asthma Status: Chronic Qualifiers: Asthma severity: mild Asthma persistence: intermittent Asthma complication type: uncomplicated Qualified Code(s): J45.20 - Mild intermittent asthma, uncomplicated (6) Cocaine dependence Status: Chronic Qualifiers: Substance use status: uncomplicated Qualified Code(s): F14.20 - Cocaine dependence, uncomplicated (7) Nicotine dependence Status: Chronic Qualifiers: Nicotine product type: cigarettes Substance use status: uncomplicated Qualified Code(s): F17.210 - Nicotine dependence, cigarettes, uncomplicated - AMA Did Patient Leave Against Medical Advice: Yes
[2018-05-31] MEDS ORDERED: chlordiazePOXIDE 5 MG CAPSULE PO SCH (05:00)
[2018-06-01] MEDS ORDERED: chlordiazePOXIDE HCL 10 MG CAPSULE PO SCH (05:00)
== END 2018-05-30 18:03 | disposition left against medical advice (07) | DRG 770 ==
LOC: YASAS 11:16 → Y6N 05-29 01:11
PROC: HZ2ZZZZ Detoxification Services for Substance Abuse Treatment (ICD-10-PCS; principal; 2018-05-29)
DX: F10.230 Alcohol dependence with withdrawal, uncomplicated (principal); F14.20 Cocaine dependence, uncomplicated; F12.20 Cannabis dependence, uncomplicated; F17.210 Nicotine dependence, cigarettes, uncomplicated; F31.81 Bipolar II disorder; J45.20 Mild intermittent asthma, uncomplicated; J34.89 Other specified disorders of nose and nasal sinuses; R09.81 Nasal congestion; R10.84 Generalized abdominal pain; L98.8 Other specified disorders of the skin and subcutaneous tissue; O90.0 Disruption of cesarean delivery wound; Z98.890 Other specified postprocedural states
CPT/HCPCS: 36415; 80178; 82962; 86593; 94640

== ENCOUNTER 2018-05-28 13:02 | Emergency (ER) | payer OTHER ==
[2018-05-28] MEDS ORDERED: SODIUM CHLORIDE 0.9% 500 ML INFUS.BAG IV ONE (13:42)
[2018-05-28] MEDS ORDERED: FAMOTIDINE 20 MG/50 ML IVPB 20 MG/50 ML MG IVPB ONE ×2 (13:42→13:59)
[2018-05-28] MEDS ORDERED: MAG HYDROX/AL HYDROX/SIMETH 30 ML UNIT-DOSE CUP PO ONE (13:42)
--- NOTE | 2018-05-28 13:53 | PDOC ---
History of Present Illness - General Chief Complaint: Pain Stated Complaint: Abdominal Pain Time Seen by Provider: 05/28/18 13:26 History Source: Patient Exam Limitations: No Limitations - History of Present Illness Initial Comments: 05/28/18 13:46 This is a 27 year old (one miscarriage) female with h/o polysubstance use ( snorts heroin and cocaine, smokes marijuana, and drinks EtOH with increased use over the past month) who had LTCS within the past month, and who p/w low-grade abdominal pain and nausea since her which has worsened over the past week and been especially bad over the past 1-2 days. She additionally notes 5 episodes of vomiting yesterday and this morning. She notes many other long- standing symptoms but none of these are new for her. She has h/o bipolar disorder and depression and has been off her normal psychoactive medications x1 week. Past History - Past Medical History Allergies/Adverse Reactions: Allergies Allergy/AdvReac Type Severity Reaction Status Date / Time Penicillins Allergy Rash Verified 05/28/18 15:40 haloperidol lactate AdvReac Severe stiffness Verified 05/28/18 15:40 [From Haldol] risperidone [From Risperdal] AdvReac Difficulty Verified 05/28/18 15:40 Breathing Home Medications: Ambulatory Orders Albuterol Sulfate Inhaler - [Ventolin HFA Inhaler -] 2 inh IH Q4H PRN 11/25/14 Flora Carbonate [Eskalith -] 600 mg PO BID 05/28/18 Metformin HCl [Glucophage] 500 mg PO BID 05/28/18 Olanzapine [Zyprexa] 20 mg PO BID 05/28/18 Sulfamethoxazole/Trimethoprim [Bactrim DS -] 1 each PO BID #14 tablet 05/30/18 Anemia: No Asthma: Yes (ON MDI) Cancer: No Cardiac Disorders: Yes (HIGH PULSE) CVA: No COPD: No CHF: No Dementia: No Diabetes: No GI Disorders: No Disorders: No HTN: Yes Hypercholesterolemia: No Kidney Stones: No Liver Disease: No Seizures: No Thyroid Disease: No - Reproductive History PID: No - Suicide/Smoking/Psychosocial Hx Smoking Status: Yes Smoking History: Current every day smoker Have you smoked in the past 12 months: Yes Number of Cigarettes Smoked Daily: 3 Cigars Per Day: 0 'Breaking Loose' booklet given: 07/03/16 Hx Alcohol Use: Yes (reports drinking since 10 yo,mostly beer,whiskey) Drug/Substance Use Hx: Yes (marijuana since school age) Substance Use Type: Alcohol, Cocaine Hx Substance Use Treatment: Yes (left AMA this program in May 2016) Abd/GI Specific PMHX - Complaint Specific PMHX Hepatitis: No Pancreatitis: No Review of Systems - Review of Systems Able to Perform ROS?: Yes Comments:: 05/28/18 13:50 GEN: no fever, chills, malaise, generalized weakness, or weight change HEENT: no ear pain, sore throat, vision change, or eye pain CV: no chest pain, palpitations, lightheadedness, syncope, or edema RESP: no cough, wheezing, or SOB GI: abdominal pain, nausea, vomiting, no diarrhea, constipation, or white/black/ bloody stool : no dysuria, hematuria, incontinence, retention, bleeding, or discharge MSK: no neck/back pain, muscle weakness/pain, or joint swelling/pain NEURO: no headache, seizure, vertigo, numbness, tingling, or focal weakness PSYCH: substance use, depression, no SI/HI, no behavior change SKIN: no jaundice, no rash ROS otherwise negative except as noted in HPI *Physical Exam - Vital Signs Initial Vital Signs Temp Pulse Resp BP Pulse Ox 98.7 F 88 18 135/71 98 05/28/18 13:11 05/28/18 13:11 05/28/18 13:11 05/28/18 13:11 05/28/18 13:11 05/28/18 13:54 GENERAL: pleasant but intermittently frustrated adult female, answers most questions but needs some questions repeated as she seems to lose attention in the middle of the question, A/Ox4, no distress, answers questions appropriately HEENT: PERRLA, EOMI, moist mucous membranes NECK/BACK: no midline ttp, no spinal stepoff or deformity, no hematoma, full ROM , neck supple CARDIOVASCULAR: regular rate/rhythm, normal S1S2, no MGR, strong peripheral pulses, capillary refill <2 seconds, extremities wwp, no edema LUNGS/RESPIRATORY: no respiratory distress, CTAB GI/ABDOMEN: protuberant, symmetric [id number], normoactive BS, soft, no ttp, no midline pulsatile masses : no CVA tenderness EXTREMITIES: no muscle atrophy, no acute deformity, no edema SKIN: no track wheeler, warm and dry, no pallor, no jaundice, no rash, no bruising , no skin breakdown, no cuts, no lesions NEUROLOGICAL: GCS 15, CN II-XII grossly intact, 5/5 strength proximally and distally, no facial droop ED Treatment Course - LABORATORY CBC & Chemistry Diagram: 05/28/18 14:21 05/28/18 14:21 Medical Decision Making - Medical Decision Making 05/28/18 14:11 Adult patient p/w abdominal pain, n/v in the setting of detoxing from cocaine/ heroin/marijuana/EtOH. Had LTCS this month. Initial Vital Signs Temp Pulse Resp BP Pulse Ox 98.2 F 94 H 18 136/89 100 05/28/18 15:29 05/28/18 15:29 05/28/18 15:29 05/28/18 15:29 05/28/18 15:29 Exam: As noted in Physical Exam section. W/U ordered: Labs as noted below TX ordered: IVF, Ofirmev Laboratory Tests 05/28/18 05/28/18 14:21 14:21 WBC 10.3 H RBC 4.40 Hgb 11.7 Hct 35.7 MCV 81.1 MCH 26.7 D MCHC 32.9 RDW 16.7 H Plt Count 258 D MPV 7.5 Absolute Neuts (auto) 7.2 Neutrophils % 70.3 Lymphocytes % 20.9 Monocytes % 5.6 Eosinophils % 2.5 Basophils % 0.7 Nucleated RBC % 0 Sodium 137 Potassium 3.3 L Chloride 103 Carbon Dioxide 26 Anion Gap 9 BUN 6 L Creatinine 0.7 Creat Clearance w eGFR > 60 Random Glucose 154 H Calcium 8.8 Magnesium 1.8 Total Bilirubin 0.5 AST 48 H ALT 54 Alkaline Phosphatase 78 Total Protein 6.7 Albumin 3.4 Lipase 227 Reassessment: Patient states improved, abdomen remains nontender, wants to go back to [facility]. 05/28/18 15:49 This patient has gotten significant relief of symptoms while in the ED. On last reassessment, vitals are wnl, pain is reasonably controlled, and exam is benign. Workup is not concerning for emergency-level pathology at this time. This patient is appropriate for discharge back to [facility] with close outpatient follow up. They are comfortable with this plan and will follow up with their primary care provider in 1-3 days. Specific return precautions are discussed and they will come back to the ER if necessary. I spoke with [facility] [employer] and they are expecting the patient back. *DC/Admit/Observation/Transfer Diagnosis at time of Disposition: Vomiting with nausea, not intractable, Polysubstance dependence Abdominal pain Qualifiers: Abdominal location: generalized Qualified Code(s): R10.84 - Generalized abdominal pain - Discharge Dispostion Disposition: HOME Condition at time of disposition: Stable Decision to Admit order: No - Referrals - Patient Instructions Additional Instructions: You were seen in the ER for abdominal pain, nausea, and vomiting. We did lab work on your blood and urine and found no abnormalities except slightly low potassium, and we gave you a pill to treat this. We gave you IV Tylenol too. After our assessment, we do not believe you are having a medical emergency at this time, and we believe you are safe to go back to [facility]. Please take [id number] medications for the pain, and if you have burning-type acid reflux discomfort you can try an [id number] antacid like omeprazole 20 mg once a day. Please follow up with your primary care provider in 1-3 days. Call their clinic [facility], tell them you were seen in the ER, and tell them you need an appointment. Please come back to the ER at any time, 24 hours a day, for any new or worsening symptoms, like worsened abdominal pain, fever, inability to have a bowel movement or pass gas, chest pain, palpitations, or other symptoms. If you are having severe or life threatening symptoms, or symptoms that make it unsafe to drive or have someone drive you, please call 911. - Post Discharge Activity
[2018-05-28] MEDS ORDERED: MAG HYDROX/AL HYDROX/SIMETH 30 ML UNIT-DOSE CUP ONE (13:59)
[2018-05-28] MEDS ORDERED: ACETAMINOPHEN 1000 MG/100 ML VIAL (NON FORMULARY) IVPB ONE (14:13)
[2018-05-28 14:36] LABS: BASO % 0.7 % (0-2.0); EOS % 2.5 % (0-4.5); HEMATOCRIT 35.7 % (32.4-45.2); HEMOGLOBIN 11.7 GM/dL (10.7-15.3); LYMPH % 20.9 % (8-40); MCH 26.7 pg (25.7-33.7); MCHC 32.9 g/dl (32.0-36.0); MEAN CELL VOLUME 81.1 fl (80-96); MEAN PLT VOLUME 7.5 fl (7.5-11.1); MONO % 5.6 % (3.8-10.2); NEUT % 70.3 % (42.8-82.8); PLATELET COUNT 258 K/MM3 (134-434); RDW 16.7 % (11.6-15.6); WHITE BLOOD COUNT 10.3 K/mm3 (4.0-10.0)
[2018-05-28] MEDS ORDERED: ACETAMINOPHEN INJECTION 100 ML IVPB ONE (14:42)
[2018-05-28 14:59] LABS: ALBUMIN 3.4 g/dl (3.4-5.0); ALK PHOS 78 U/L (45-117); ANION GAP 9 MMOL/L (8-16); BILIRUBIN,TOTAL 0.5 mg/dL (0.2-1); BLOOD UREA NITROGEN 6 mg/dL (7-18); CALCIUM 8.8 mg/dL (8.5-10.1); CHLORIDE 103 mmol/L (98-107); CO2 26 mmol/L (21-32); CREATININE 0.7 mg/dL (0.55-1.3); GLUCOSE,RANDOM 154 mg/dL (74-106); LIPASE 227 U/L (73-393); MAGNESIUM 1.8 mg/dL (1.8-2.4); POTASSIUM 3.3 mmol/L (3.5-5.1); SGOT/AST 48 U/L (15-37); SGPT/ALT 54 U/L (13-61); SODIUM 137 mmol/L (136-145); TOT PROT 6.7 g/dl (6.4-8.2)
[2018-05-28] MEDS ORDERED: POTASSIUM CHLORIDE TABS 20 MEQ TABLET.ER (FP) PO ONE (15:26)
[2018-05-28 15:41] VITALS: BMI 31.6
--- NOTE | 2018-05-28 16:01 | PDOC ---
Attending Attestation - Resident Resident Name: Katy Maradiaga - ED Attending Attestation I have performed the following: I have examined & evaluated the patient, The case was reviewed & discussed with the resident, I agree w/resident's findings & plan - HPI HPI: 05/28/18 16:01 27YOF, with a significant past medical history of bipolar disorder, depression, polysubstance use (snorts heroin and cocaine, smokes marijuana, and drinks EtOH with increased use over the past month), who presents to the emergency department with, 1 week of abdominal pain. As per patient, her abdominal pain has been worsening over the past two days with 10 episodes of emesis (recently become blood tinged). While at [facility], pt was wrenching, yelling and screaming of extreme abdominal pain. pt keeps tugging at her lower abdominal for some comfort. Pt states she has a recent in March 2018 c/o that the incision is opening. There is a small dehiscence noted to the mid section of her incision. She denies any recent fevers, chills, headache or dizziness. She denies any recent diarrhea or constipation. She denies any recent chest pain or shortness of breath. She denies any recent dysuria, frequency, urgency or hematuria. Allergies: Penicillins, haloperidol lactate, risperidone Past surgical history: None reported. Social History: Polysubstance abuse (cocaine, heroine, marijuana, alcohol)- no IV antibiotics. - Physicial Exam PE: 05/28/18 16:01 NAD, well appearing, comfortable and eating. alert, flat affect. PERRL, EOMI, MMM, nl conjunctiva, anicteric; neck supple. lungs clear, RRR, abdomen soft nontender,obese, horizontal C section scar with very small area of dehiscence. LOWRY x4. No peripheral edema. normal color for ethnicity, WWP. - Medical Decision Making 05/28/18 15:57 I, Elizabet Coronado MD, attest that this document has been prepared under my direction and personally reviewed by me in its entirety. I further attest, that it accurately reflects all work, treatment, procedures and medical decision -making performed by me. 27 YOF with polysubstance abuse, recent C section in 03/2018 presenting with AP , n/v. Vital signs reviewed, wnl. Prior notes reviewed, including admissions, discharges and consultations. laboratory results and imaging reviewed, basic labs and lytes wnl, notable for low potassium 3.3, repleted with PO potasssium ED course: no acute events, repleted, feels better, flat affect. no acute symptoms, given gi cocktail, fluids and analgesia. small area of dehiscence, but otherwise no s/s infection tobacco and drug cessation advised Dispo: updated back to [facility], discharge back to detox facility. DC in stable condition, return precautions provided. 05/28/18 15:58 05/28/18 16:01
[2018-05-28] MEDS ORDERED: POTASSIUM CHLORIDE ORAL LIQUID 20 MEQ/15 ML ONE (16:04)
[2018-05-28 16:32] VITALS: BP 128/80; PULSE 80; TEMP 98.1
== END 2018-05-28 16:41 | disposition home or self-care (01) ==
LOC: JER 13:02
PROC: 3E033NZ Introduction of Analgesics, Hypnotics, Sedatives into Peripheral Vein, Percutaneous Approach (ICD-10-PCS; principal; 2018-05-28)
PROC: 3E033GC Introduction of Other Therapeutic Substance into Peripheral Vein, Percutaneous Approach (ICD-10-PCS; 2018-05-28)
PROC: 3E0337Z Introduction of Electrolytic and Water Balance Substance into Peripheral Vein, Percutaneous Approach (ICD-10-PCS; 2018-05-28)
DX: R10.84 Generalized abdominal pain (principal); R11.2 Nausea with vomiting, unspecified; F19.20 Other psychoactive substance dependence, uncomplicated
CPT/HCPCS: 36415; 80053; 83690; 83735; 85025; 96361; 96365; 96375; 99283-25; J0131

== ENCOUNTER 2018-12-26 15:57 | Inpatient (IN) | payer OTHER ==
[2018-12-26 19:26] VITALS: BMI 38.9
--- NOTE | 2018-12-26 23:02 | HP ---
"CIWA Score Nausea/Vomitin Muscle Tremors: 3 Anxiety: 4-Mod. Anxious/Guarded Agitation: 4-Moderately Restless Paroxysmal Sweats: 3 (Increased facial moisture) Orientation: 0-Oriented Tacttile Disturbances: 1-Very Mild Itch/Numbness Auditory Disturbances: 0-None Visual Disturbances: 0-None Headache: 0-None Present CIWA-Ar Total Score: 18 - Admission Criteria OAS Guidelines: Admission for Medically Managed Detox: Requires at least one of the followin. CIWA greater than 12 2. Seizures within the past 24 hours 3. Delirium tremens within the past 24 hours 4. Hallucinations within the past 24 hours 5. Acute intervention needed for co occurring medical disorder 6. Acute intervention needed for co occurring psychiatric disorder 7. Severe withdrawal that cannot be handled at a lower level of care (continued vomiting, continued diarrhea, abnormal vital signs) requiring intravenous medication and/or fluids 8. Patient presents the following: CIWA greater than 12 Admission Criteria Met: Admission criteria met Admission ROS [facility] Chief Complaint: Having alcohol withdrawals. Allergies/Adverse Reactions: Allergies Allergy/AdvReac Type Severity Reaction Status Date / Time Penicillins Allergy Rash Verified 05/28/18 15:40 haloperidol lactate AdvReac Severe stiffness Verified 05/28/18 15:40 [From Haldol] risperidone [From Risperdal] AdvReac Difficulty Verified 05/28/18 15:40 Breathing History of Present Illness: 28 yo w/ alcohol withdrawal presents for detox. Mare began drinking again right after being discharged from [facility] in 05/2018. Alcohol use since age 13. [facility] current use is 10 bottles 22 oz beers daily. Last drink 2 hours ago. Cocaine use since age 13. 2 gms daily - nasal Nicotine use since age 10. Smokes 1 PPD. Denies seizures. States had alcohol overdose and blackouts in the past. States on Depo-provera to avoid . [facility] LMP 05/2018. U-tox + for ALTAGRACIA; LION 0 Neg HCG Hx: Asthma, DM, Palpitations, Hx Depression. Denies thoughts of harming self or others. On medications. [facility] has a MH provider. Patient Name: Ramiro Rhoades Date: 1990 Address: [address] [place], [place] [id number] Sex: Female Rx Written Rx Dispensed Drug Quantity Days Supply Prescriber Name 04/11/2018 05/03/2018 oxycodone-acetaminophen 5-325 mg tablet 20 5 Jesus Stacia Patient Name: Ramiro Rhoades Date: 1990 Address: [address] [place] [id number] Sex: Female Rx Written Rx Dispensed Drug Quantity Days Supply Prescriber Name 04/14/2018 04/14/2018 oxycodone-acetaminophen 5-325 mg tablet 20 5 Stacia Lee Search Terms: RAMIRO RHOADES, 1990 Search Date: 12/26/2018 10:54:57 PM States Searched: [place], [place], [place], [place], [place], [place], [place] The Drug Utilization Report below displays the controlled substance prescriptions, if any, that were dispensed in the indicated state(s). The information displayed on this report is compiled from requests submitted to other states' PMPs, and accurately reflects the information as returned by them. Blank aquino indicate data not provided by other state. This report was requested by: Alona Langston | Reference #: [id number] Exam Limitations: No Limitations - Ebola screening Have you traveled outside of the country in the last 21 days: No Have you had contact with anyone from an Ebola affected area: No Have you been sick,other than usual withdrawal symptoms: No (Denies recent exposure to measles) Do you have a fever: No - Review of Systems Constitutional: Chills, Diaphoresis EENT: reports: Nose Congestion Respiratory: reports: Shortness of Breath Cardiac: reports: Palpitations (Hx palpatations. Denies chest pain.) GI: reports: Nausea, Vomiting : reports: No Symptoms Reported Musculoskeletal: reports: Back Pain (Mid -back pain - states r/t asthma.) Integumentary: reports: No Symptoms Reported Neuro: reports: No Symptoms reported Endocrine: reports: No Symptoms Reported Hematology: reports: No Symptoms Reported Psychiatric: reports: Judgement Intact, Orientated x3, Agitated, Anxious, Depressed (Denies thoughts of harming self or others.) Patient History - Patient Medical History Hx Anemia: No Hx Asthma: Yes (ON MDI) Hx Chronic Obstructive Pulmonary Disease (COPD): No Hx Cancer: No Hx Cardiac Disorders: Yes (HIGH PULSE) Hx Congestive Heart Failure: No Hx Hypertension: Yes Hx Hypercholesterolemia: No Hx Pacemaker: No HX Cerebrovascular Accident: No Hx Seizures: No Hx Dementia: No Hx Diabetes: No Hx Gastrointestinal Disorders: No Hx Liver Disease: No Hx Genitourinary Disorders: No Hx Sexually Transmitted Disorders: Yes ([place]) Hx Renal Disease (ESRD): No Hx Thyroid Disease: No Hx Human Immunodeficiency Virus (HIV): No (Last tested: 05/2016: NEGATIVE.) Hx Hepatitis C: No (Last tested: 05/2016: NEGATIVE.) Hx Depression: Yes Hx Suicide Attempt: No Hx Bipolar Disorder: Yes Hx Schizophrenia: No - Patient Surgical History Past Surgical History: No Anesthesia Reaction: No - PPD History Previous Implant?: Yes Documented Results: Negative w/proof Implanted On Prior [facility] Admission?: Yes Date: 05/31/18 Results: 0 mm PPD to be Administered?: No - Reproductive History Last Menstrual Period: 05/03/16 - Smoking Cessation Smoking history: Current every day smoker Have you smoked in the past 12 months: Yes Aproximately how many cigarettes per day: 10 Cigars Per Day: 0 Hx Chewing Tobacco Use: No Initiated information on smoking cessation: Yes 'Breaking Loose' booklet given: 12/27/18 - Substance & Tx. History Hx Alcohol Use: Yes Hx Substance Use: Yes Substance Use Type: Alcohol, Cocaine, Heroin Hx Substance Use Treatment: Yes (detox, rehab) - Substances abused Alcohol Substance route: Oral Frequency: Daily Amount used: 10 beers Age of first use: 13 Date of last use: 12/26/18 Cocaine Substance route: Inhalation Frequency: Daily Amount used: 2 gm Age of first use: 13 Date of last use: 12/25/18 Family Disease History - Family Disease History Family Disease History: Diabetes: Grandparent (LIVER CANCER-), Heart Disease: Father (Hx. Sub. Use; Heart surgery.), Brother (Genetic Defect.), CA: Grandparent, Other: Son (Panic Attacks.) Admission Physical Exam BHS - Vital Signs Vital Signs: Vital Signs - 24 hr 12/26/18 19:18 Temperature 98.7 F Pulse Rate 91 H Respiratory 18 Rate Blood Pressure 132/91 - Physical General Appearance: Yes: Nourished, Mild Distress, Obese, Irritable, Sweating ( Increased facial moisture), Anxious HEENTM: Yes: EOMI (Jerking movement of eyes upon lateral gaze), Hearing grossly Normal, Normocephalic, Normal Voice, MIKE, Pharynx Normal, Nasal Congestion, Rhinorrhea, Other (Perforated nasal septum) Respiratory: Yes: Lungs Clear (O2 sat = 97%), Normal Breath Sounds, No Respiratory Distress Neck: Yes: No masses,lesions,Nodules, Supple Breast: Yes: Breast Exam Deferred Cardiology: Yes: Regular Rhythm, S1, S2, Tachycardia (HR: 100) Abdominal: Yes: Soft, Increased Bowel Sounds, Protuberent (Increased abdominal adiposity) Genitourinary: Yes: Within Normal Limits Back: Yes: Normal Inspection Musculoskeletal: Yes: full range of Motion, Gait Steady Extremities: Yes: Normal Capillary Refill, Normal Range of Motion, Tremors ( Mild tremors of hands) Neurological: Yes: transplant surgeon II-XII NML intact (Jerking movement of eyes upon lateral gaze), Fully Oriented, Alert, Motor Strength 5/5, Normal Response Integumentary: Yes: Normal Color, Warm, Diaphoresis (Increased facial moisture) , Other (Increased erythema at suprapubic fold.) - Diagnostic (1) Alcohol dependence with uncomplicated withdrawal Current Visit: Yes Status: Acute (2) Nasal congestion Current Visit: Yes Status: Chronic (3) Cocaine dependence Current Visit: No Status: Chronic Qualifiers: Substance use status: uncomplicated Qualified Code(s): F14.20 - Cocaine dependence, uncomplicated (4) Nicotine dependence Current Visit: Yes Status: Chronic Qualifiers: Nicotine product type: cigarettes Substance use status: uncomplicated Qualified Code(s): F17.210 - Nicotine dependence, cigarettes, uncomplicated (5) Perforated nasal septum Current Visit: Yes Status: Chronic (6) History of asthma Current Visit: Yes Status: Chronic (7) Obesity (BMI 30-39.9) Current Visit: Yes Status: Acute Cleared for Admission S - Detox or Rehab [facility] Level of Care: Medically Managed Detox Regimen/Protocol: Librium Claeared for Rehab Admission: No Inpatient Rehab Admission - Rehab Decision to Admit Inpatient rehab admission?: No"
[2018-12-26] MEDS ORDERED: MENTHOL/PHENOL 1 EACH UD MM PRN (23:36)
[2018-12-26] MEDS ORDERED: IBUPROFEN 400 MG TABLET (FP) PO PRN (23:36)
[2018-12-26] MEDS ORDERED: NICOTINE POLACRILEX 2 MG GUM BUC PRN (23:36)
[2018-12-26] MEDS ORDERED: ACETAMINOPHEN 325 MG TABLET (FP) PO PRN ×2 (23:36)
[2018-12-26] MEDS ORDERED: MELATONIN 5 MG TABLETS PO PRN (23:36)
[2018-12-26] MEDS ORDERED: BISMUTH SUBSALICYLATE 524 MG/30 ML UD PO PRN (23:36)
[2018-12-26] MEDS ORDERED: MAGNESIUM CITRATE 300 ML BOTTLE PO PRN (23:36)
[2018-12-26] MEDS ORDERED: METHOCARBAMOL 500 MG TABLET PO PRN (23:36)
[2018-12-26] MEDS ORDERED: MAGNESIUM HYDROX 2400MG/30ML ORAL SUSPENSION 30 ML CUP PO PRN (23:36)
[2018-12-26] MEDS ORDERED: MAG HYDROX/AL HYDROX/SIMETH 30 ML UNIT-DOSE CUP PO PRN (23:36)
[2018-12-26] MEDS ORDERED: chlordiazePOXIDE HCL 10 MG CAPSULE PO PRN (23:39)
[2018-12-26] MEDS ORDERED: chlordiazePOXIDE HCL 25 MG CAPSULE PO ONE (23:39)
[2018-12-26] MEDS ORDERED: ALBUTEROL SO4 0.083% IH SOL 2.5 MG/3 ML VIAL.NEB. NEB PRN (23:41)
[2018-12-27] MEDS: chlordiazePOXIDE HCL 25 MG CAPSULE PO SCH ×5 (00:06→22:37)
[2018-12-27] MEDS: metFORMIN HCL 500 MG TABLET (FP) PO SCH ×3 (00:07→17:33)
[2018-12-27] MEDS ORDERED: chlordiazePOXIDE HCL 25 MG CAPSULE PO ONE ×2 (00:30→00:49)
[2018-12-27] MEDS ORDERED: chlordiazePOXIDE HCL 10 MG CAPSULE PO PRN (00:49)
[2018-12-27] MEDS ORDERED: chlordiazePOXIDE 5 MG CAPSULE PO SCH (05:00)
[2018-12-27] MEDS: NICOTINE 21 MG/24 HOURS TOPICAL PATCH TD SCH (10:31)
[2018-12-27] MEDS: PRENATAL VITAMINS W/ FOLIC ACID TABLET (FP) PO SCH (10:31)
[2018-12-27] MEDS: NYSTATIN POWDER 100,000 UNITS/GM - 15 GM TOPICAL POWDER TP SCH (14:35)
--- NOTE | 2018-12-27 16:47 | PN ---
S CIWA - CIWA Score Nausea/Vomitin Muscle Tremors: 3 Anxiety: 4-Mod. Anxious/Guarded Agitation: 2 Paroxysmal Sweats: 3 Orientation: 0-Oriented Tacttile Disturbances: 2-Mild Itch/Numbness/Burn Auditory Disturbances: 1-Very Mild Visual Disturbances: 0-None Headache: 0-None Present CIWA-Ar Total Score: 17 BHS Progress Note (SOAP) Subjective: Tremors, Nausea, anxious, Interrupted Sleep. Objective: PATIENT A & O X 3, OBSERVED AMBULATING ON UNIT UNASSISTED. IN NO ACUTE DISTRESS. 12/27/18 16:46 Vital Signs Temperature 98.4 F 12/27/18 13:18 Pulse Rate 84 12/27/18 13:18 Respiratory Rate 18 12/27/18 13:18 Blood Pressure 126/78 12/27/18 13:18 O2 Sat by Pulse Oximetry (%) Laboratory Tests 12/27/18 12/27/18 12/27/18 05:25 11:37 16:41 POC Glucometer 146 149 124 PATIENT REFUSED TO HAVE ADMISSION LABS DRAWN. 12/27/18 16:46 Assessment: 12/27/18 16:46 WITHDRAWAL SYMPTOMS. Plan: CONTINUE DETOX.
--- NOTE | 2018-12-27 17:20 | CONSULT ---
[facility] Psychiatric Consult - Data Date of interview: 12/27/18 Admission source: [facility] Identifying data: This is one of multiple admissions to [facility] for this 28 y/ o female self-referred for detoxification (alcohol, cocaine, cannabis) . Interviewed at [address] [place] [address]. Patient is single, a mother of two, homeless, unemployed and supported on SSI benefits. Substance Abuse History: Discussed in this session. Patient admits to alcohol, marihuana and cocaine abuse. Details in current [facility] report as follows : Smoking history: Current every day smoker. Have you smoked in the past 12 months: Yes. Aproximately how many cigarettes per day: 10. Cigars Per Day: 0. Hx Chewing Tobacco Use: No. Initiated information on smoking cessation: Yes. 'Breaking Loose' booklet given: 12/27/18. - Substance & Tx. History. Hx Alcohol Use: Yes. Hx Substance Use: Yes. Substance Use Type: Alcohol, Cocaine, Heroin. Hx Substance Use Treatment: Yes (detox, rehab). - Substances abused. Alcohol. Substance route: Oral. Frequency: Daily. Amount used: 10 beers. Age of first use: 13. Date of last use: 12/26/18. Cocaine. Substance route: Inhalation. Frequency: Daily. Amount used: 2 gm. Age of first use: 13. Date of last use: 12/25/18 Medical History: Remarkable for bronchial asthma, obesity and a history of treatment for chlamydia. Psychiatric History: Patient is a hostile, argumentative and marginally cooperative historian. She dose admit to a history of multiple psychiatric hospitalizations since onset of emotional disturbances at ag 14 (first psychiatric hospitalization). She is known to [facility]. Diagnosed with Bipolar Disorder. Ms Rhoades used to be on various mood stabilizers, including valproate, lithium, olanzapine and quetiapine. Patient indicates that she is on monthly injections of Invega dispensed by a provider at the [facility] outpatient program in the [place] (self-report). Denies history of suicide attempts. Physical/Sexual Abuse/Trauma History: Not discussed in this interview. Patient declines. Additional Comment: No toxicology for review. Mental Status Exam - Mental Status Exam Alert and Oriented to: Time, Place, Person Cognitive Function: Good Patient Appearance: Well Groomed (obese) Mood: Hostile, Suspicious, Irritable Affect: Labile Patient Behavior: Uncooperative (stopped the interview after a few questions), Guarded, Suspicious Speech Pattern: Clear (bengali speaking) Voice Loudness: Normal Thought Process: Goal Oriented Thought Disorder: Paranoid Ideation Hallucinations: Denies Suicidal Ideation: Denies Homicidal Ideation: Denies Insight/Judgement: Poor Sleep: Well Appetite: Good Gait/Station: Normal Psychiatric Findings - Problem List ([place] 1, 2,3) (1) Alcohol dependence with uncomplicated withdrawal Current Visit: Yes Status: Acute (2) Cocaine dependence Current Visit: Yes Status: Chronic Qualifiers: Substance use status: uncomplicated Qualified Code(s): F14.20 - Cocaine dependence, uncomplicated (3) Nicotine dependence Current Visit: Yes Status: Chronic Qualifiers: Nicotine product type: cigarettes Substance use status: uncomplicated Qualified Code(s): F17.210 - Nicotine dependence, cigarettes, uncomplicated (4) Substance induced mood disorder Current Visit: Yes Status: Chronic (5) Bipolar disorder Current Visit: Yes Status: Chronic Comment: As per records. - Initial Treatment Plan Initial Treatment Plan: Records revisited ([facility]). Psychoeducation. Sleep hygiene. Detoxification. Observation.
[2018-12-27 19:45] LABS: PH,URINE 7.5 (5.0-8.0); URINE APPEARANCE CLEAR; URINE BILIRUBIN NEGATIVE (NEGATIVE); URINE COLOR YELLOW; URINE GLUCOSE (UA) NEGATIVE (NEGATIVE); URINE KETONE NEGATIVE (NEGATIVE); URINE LEUK ESTERASE NEGATIVE (NEGATIVE); URINE NITRITE NEGATIVE (NEGATIVE); URINE PROTEIN NEGATIVE (NEGATIVE); URINE UROBILINOGEN 0.2 mg/dL (0.2-1.0)
[2018-12-27] MEDS ORDERED: THIAMINE HCL 100 MG TABLET (FP) PO SCH (22:00)
[2018-12-28] MEDS ORDERED: chlordiazePOXIDE HCL 10 MG CAPSULE PO SCH (05:00)
[2018-12-28] MEDS ORDERED: chlordiazePOXIDE HCL 10 MG CAPSULE PO PRN (05:00)
[2018-12-28] MEDS: chlordiazePOXIDE 5 MG CAPSULE PO SCH ×2 (06:10→14:08)
[2018-12-28] MEDS: metFORMIN HCL 500 MG TABLET (FP) PO SCH (06:11)
[2018-12-28] MEDS: NICOTINE 21 MG/24 HOURS TOPICAL PATCH TD SCH (10:59)
[2018-12-28] MEDS: NYSTATIN POWDER 100,000 UNITS/GM - 15 GM TOPICAL POWDER TP SCH (10:59)
[2018-12-28] MEDS: PRENATAL VITAMINS W/ FOLIC ACID TABLET (FP) PO SCH (10:59)
[2018-12-28 13:23] VITALS: BP 121/79; PULSE 113; TEMP 97.2
--- NOTE | 2018-12-28 14:52 | PN ---
[facility] CIWA - CIWA Score Nausea/Vomitin-No Nausea/No Vomiting Muscle Tremors: 4-Moderate,w/Arms Extend Anxiety: 4-Mod. Anxious/Guarded Agitation: 4-Moderately Restless Paroxysmal Sweats: 1-Minimal Palms Moist Orientation: 0-Oriented Tacttile Disturbances: 0-None Auditory Disturbances: 0-None Visual Disturbances: 0-None Headache: 0-None Present CIWA-Ar Total Score: 13 S Progress Note (SOAP) Subjective: ANXIETY, SWEATS,IRRITABILITY, HOT/COLD CHILLS. Objective: 12/28/18 14:52 Vital Signs 12/28/18 12/28/18 09:36 13:22 Temperature 98.0 F 97.2 F L Pulse Rate 111 H 113 H Respiratory 20 18 Rate Blood Pressure 107/68 121/79 Laboratory Tests 12/27/18 12/27/18 12/27/18 05:25 11:37 16:41 POC Glucometer 146 149 124 Urine Color Urine Appearance Urine pH Ur Specific [place] Urine Protein Urine Glucose (UA) Urine Ketones Urine Blood Urine Nitrite Urine Bilirubin Urine Urobilinogen Ur Leukocyte Esterase 12/27/18 12/27/18 12/28/18 19:37 20:58 03:27 POC Glucometer 139 140 Urine Color Yellow Urine Appearance Clear Urine pH 7.5 Ur Specific [place] 1.012 Urine Protein Negative Urine Glucose (UA) Negative Urine Ketones Negative Urine Blood Negative Urine Nitrite Negative Urine Bilirubin Negative Urine Urobilinogen 0.2 Ur Leukocyte Esterase Negative 12/28/18 12/28/18 06:10 11:18 POC Glucometer 137 169 Urine Color Urine Appearance Urine pH Ur Specific [place] Urine Protein Urine Glucose (UA) Urine Ketones Urine Blood Urine Nitrite Urine Bilirubin Urine Urobilinogen Ur Leukocyte Esterase Assessment: 12/28/18 14:52 WITHDRAWAL SX Plan: CONTINUE DETOX
--- NOTE | 2018-12-28 16:13 | DS ---
[facility] Detox Discharge Summary Admission Date: 12/26/18 Discharge Date: 12/28/18 - History Present History: Alcohol Dependence Additional Comments: PT DECLINED TO CONTINUE WITH DETOX AND WANTS TO GO HOME. Pertinent Past History: PLEASE SEE DX BELOW - Physical Exam Results Vital Signs: Vital Signs Temperature 97.2 F L 12/28/18 13:22 Pulse Rate 113 H 12/28/18 13:22 Respiratory Rate 18 12/28/18 13:22 Blood Pressure 121/79 12/28/18 13:22 O2 Sat by Pulse Oximetry (%) Pertinent Admission Physical Exam Findings: WITHDRAWAL SX Laboratory Tests 12/27/18 12/27/18 12/27/18 05:25 11:37 16:41 POC Glucometer 146 149 124 Urine Color Urine Appearance Urine pH Ur Specific [place] Urine Protein Urine Glucose (UA) Urine Ketones Urine Blood Urine Nitrite Urine Bilirubin Urine Urobilinogen Ur Leukocyte Esterase 12/27/18 12/27/18 12/28/18 19:37 20:58 03:27 POC Glucometer 139 140 Urine Color Yellow Urine Appearance Clear Urine pH 7.5 Ur Specific [place] 1.012 Urine Protein Negative Urine Glucose (UA) Negative Urine Ketones Negative Urine Blood Negative Urine Nitrite Negative Urine Bilirubin Negative Urine Urobilinogen 0.2 Ur Leukocyte Esterase Negative 12/28/18 12/28/18 06:10 11:18 POC Glucometer 137 169 Urine Color Urine Appearance Urine pH Ur Specific [place] Urine Protein Urine Glucose (UA) Urine Ketones Urine Blood Urine Nitrite Urine Bilirubin Urine Urobilinogen Ur Leukocyte Esterase - Treatment Hospital Course: Discharged Condition Good - Medication Discharge Medications: Ambulatory Orders Albuterol Sulfate Inhaler - [Ventolin HFA Inhaler -] 2 inh IH Q4H PRN 11/25/14 Metformin HCl [Glucophage] 500 mg PO BID 05/28/18 Olanzapine [Zyprexa] 7.5 mg PO 15 12/26/18 - Diagnosis (1) Alcohol dependence with uncomplicated withdrawal Current Visit: Yes Status: Acute (2) Obesity (BMI 30-39.9) Current Visit: Yes Status: Chronic (3) Asthma Current Visit: Yes Status: Chronic Qualifiers: Asthma severity: mild Asthma persistence: unspecified Asthma complication type: uncomplicated Qualified Code(s): J45.909 - Unspecified asthma, uncomplicated (4) Cocaine dependence Current Visit: Yes Status: Acute Qualifiers: Substance use status: uncomplicated Qualified Code(s): F14.20 - Cocaine dependence, uncomplicated (5) History of asthma Current Visit: Yes Status: Chronic (6) Nicotine dependence Current Visit: Yes Status: Acute Qualifiers: Nicotine product type: cigarettes Substance use status: in withdrawal Qualified Code(s): F17.213 - Nicotine dependence, cigarettes, with withdrawal (7) Type 2 diabetes mellitus Current Visit: Yes Status: Chronic Qualifiers: Diabetes mellitus superintendent container terminal insulin use: without superintendent container terminal use - AMA Did Patient Leave Against Medical Advice: Yes (AMA)
--- NOTE | 2018-12-29 00:09 | EKG ---
Test Reason : Blood Pressure : / mmHG Vent. Rate : 091 BPM Atrial Rate : 091 BPM P-R Int : 162 ms QRS Dur : 090 ms QT Int : 346 ms P-R-T Axes : 026 030 047 degrees QTc Int : 425 ms NORMAL SINUS RHYTHM NONSPECIFIC ST ABNORMALITY ABNORMAL ECG WHEN COMPARED WITH ECG OF 31-JAN-2013 10:17, NO SIGNIFICANT CHANGE WAS FOUND Confirmed by MD Schuster Edward ([id number]) on 12/29/2018 12:08:50 AM Referred By: Confirmed By:Marciano Schuster MD
[2018-12-29] MEDS ORDERED: chlordiazePOXIDE HCL 10 MG CAPSULE PO PRN (05:00)
[2018-12-29] MEDS ORDERED: chlordiazePOXIDE HCL 10 MG CAPSULE PO SCH (05:00)
== END 2018-12-28 16:27 | disposition left against medical advice (07) | DRG 770 ==
LOC: YASAS 15:57 → Y3N 23:21
PROVIDERS: ADMIT Surgery; ATTEND Surgery
PROC: HZ2ZZZZ Detoxification Services for Substance Abuse Treatment (ICD-10-PCS; principal; 2018-12-26)
DX: F10.230 Alcohol dependence with withdrawal, uncomplicated (principal); F14.20 Cocaine dependence, uncomplicated; F17.213 Nicotine dependence, cigarettes, with withdrawal; F19.24 Other psychoactive substance dependence with psychoactive substance-induced mood disorder; F31.9 Bipolar disorder, unspecified; J45.909 Unspecified asthma, uncomplicated; E11.9 Type 2 diabetes mellitus without complications; I10 Essential (primary) hypertension; R00.0 Tachycardia, unspecified; R09.81 Nasal congestion; E66.9 Obesity, unspecified; Z68.39 Body mass index [BMI] 39.0-39.9, adult; Z87.42 Personal history of other diseases of the female genital tract; Z88.0 Allergy status to penicillin
CPT/HCPCS: 81003; 81025; 82962; 93005; 93010

== ENCOUNTER 2018-12-30 14:54 | Inpatient (IN) | payer OTHER ==
[2018-12-30 15:53] VITALS: BMI 38.7
--- NOTE | 2018-12-30 18:38 | HP ---
CIWA Score Nausea/Vomitin Muscle Tremors: 2 Anxiety: 0-No Anxiety, at Ease Agitation: 1-Slight > Activity Paroxysmal Sweats: 2 Orientation: 2-Disoriented Date<2 days Tacttile Disturbances: 0-None Auditory Disturbances: 0-None Visual Disturbances: 2-Mild Sensitivity Headache: 4-Moderately Severe CIWA-Ar Total Score: 16 - Admission Criteria OASAS Guidelines: Admission for Medically Managed Detox: Requires at least one of the followin. CIWA greater than 12 2. Seizures within the past 24 hours 3. Delirium tremens within the past 24 hours 4. Hallucinations within the past 24 hours 5. Acute intervention needed for co occurring medical disorder 6. Acute intervention needed for co occurring psychiatric disorder 7. Severe withdrawal that cannot be handled at a lower level of care (continued vomiting, continued diarrhea, abnormal vital signs) requiring intravenous medication and/or fluids 8. Admission ROS [facility] Allergies/Adverse Reactions: Allergies Allergy/AdvReac Type Severity Reaction Status Date / Time divalproex sodium Allergy Intermediate Vomiting Verified 12/30/18 15:46 [From Depakote] lithium Allergy Intermediate Nausea Verified 12/30/18 15:46 Penicillins Allergy Rash Verified 05/28/18 15:40 haloperidol lactate AdvReac Severe stiffness Verified 05/28/18 15:40 [From Haldol] risperidone [From Risperdal] AdvReac Difficulty Verified 05/28/18 15:40 Breathing History of Present Illness: pt here requesting detox from etoh use , reports use since age 10 , current daily use 10 beers " every time I have money " on average every Saturday , reports mandate from court 2/2 use of etoh and cocaine , reports tremors if not drinking , denies seizures , denies blackouts , latest use 5 am today , current symptoms as above . Pt left detox AMA recently , claims hse had to go to court. pt is very poor historian , states she is tired, difficulty answering questions with long lag between Q & A , repeating questions several times before answering them , states " I am tired" . cocaine use since age 13. 5 gr on weekend " every Saturday " denies IVDU Nicotine use since age 10, 1 PPD. PMHX : asthma , DM on insulin states on Depo-provera to avoid , 04/02 delivery , child in foster care . ages 6, 8 and 9 mo PSHX : c-sx x 1 psych : denies This report was requested by: Jena Greenberg | Reference #: [id number] Others' Prescriptions Patient Name: Janine Rhoades Date: 1990 Address: [address], [place] [address] Sex: Female Rx Written Rx Dispensed Drug Quantity Days Supply Prescriber Name 04/11/2018 05/03/2018 oxycodone-acetaminophen 5-325 mg tablet 20 5 [place], Mini Patient Name: Janine Rhoades Date: 1990 [address] [place] [address] Sex: Female Rx Written Rx Dispensed Drug Quantity Days Supply Prescriber Name 04/14/2018 04/14/2018 oxycodone-acetaminophen 5-325 mg tablet 20 5 [place], Mini Exam Limitations: Clinical Condition - Ebola screening Have you traveled outside of the country in the last 21 days: No Have you had contact with anyone from an Ebola affected area: No - Review of Systems Constitutional: See HPI Respiratory: reports: See HPI Cardiac: reports: See HPI GI: reports: See HPI, Diarrhea : reports: No Symptoms Reported Musculoskeletal: reports: No Symptoms Reported Integumentary: reports: No Symptoms Reported Neuro: reports: See HPI Endocrine: reports: See HPI Psychiatric: reports: Orientated x3, Agitated, Disorientated Patient History - Patient Medical History Hx Anemia: No Hx Asthma: Yes (ON MDI) Hx Chronic Obstructive Pulmonary Disease (COPD): No Hx Cancer: No Hx Cardiac Disorders: Yes (HIGH PULSE) Hx Congestive Heart Failure: No Hx Hypertension: Yes Hx Hypercholesterolemia: No Hx Pacemaker: No HX Cerebrovascular Accident: No Hx Seizures: No Hx Dementia: No Hx Diabetes: No Hx Gastrointestinal Disorders: No Hx Liver Disease: No Hx Genitourinary Disorders: No Hx Sexually Transmitted Disorders: Yes (CHLAMYDIA) Hx Renal Disease (ESRD): No Hx Thyroid Disease: No Hx Human Immunodeficiency Virus (HIV): No (Last tested: 05/2016: NEGATIVE.) Hx Hepatitis C: No (Last tested: 05/2016: NEGATIVE.) Hx Depression: Yes Hx Suicide Attempt: No Hx Bipolar Disorder: Yes Hx Schizophrenia: No - Patient Surgical History Past Surgical History: No Hx Neurologic Surgery: No Hx Cataract Extraction: No Hx Cardiac Surgery: No Hx Lung Surgery: No Hx Breast Surgery: No Hx Breast Biopsy: No Hx Abdominal Surgery: No Hx Appendectomy: No Hx Cholecystectomy: No Hx Genitourinary Surgery: No Hx Section: No Hx Orthopedic Surgery: No Anesthesia Reaction: No - PPD History Date: 05/31/18 Results: 0 mm - Reproductive History Last Menstrual Period: 05/03/16 - Smoking Cessation Smoking history: Current every day smoker Have you smoked in the past 12 months: Yes Aproximately how many cigarettes per day: 10 Cigars Per Day: 0 Hx Chewing Tobacco Use: No Initiated information on smoking cessation: No - Substances abused Alcohol Substance route: Oral Frequency: Daily Amount used: 3- 45oz coors light Age of first use: 13 Date of last use: 12/29/18 Cocaine Substance route: Inhalation Frequency: Daily Amount used: 2 gm Age of first use: 13 Date of last use: 12/29/18 Family Disease History - Family Disease History Family Disease History: Diabetes: Grandparent (LIVER CANCER-), Heart Disease: Father (Hx. Sub. Use; Heart surgery.), Brother (Genetic Defect.), CA: Grandparent, Other: Son (Panic Attacks.) Admission Physical Exam BHS - Vital Signs Vital Signs: Vital Signs - 24 hr 12/30/18 15:15 Temperature 97 F L Pulse Rate 100 H Respiratory 18 Rate Blood Pressure 125/85 - Physical General Appearance: Yes: Disheveled, Moderate Distress, Anxious HEENTM: Yes: Normocephalic, Normal Voice, Hearing Decreased Respiratory: Yes: No Respiratory Distress, No Accessory Muscle Use Neck: Yes: No masses,lesions,Nodules, Trachea in good position Cardiology: Yes: Regular Rhythm, Regular Rate, S1, S2 Abdominal: Yes: Non Tender, Soft Back: Yes: Normal Inspection Extremities: Yes: Non-Tender, Tremors Neurological: Yes: Fully Oriented, Alert, Motor Strength 5/5, Depressed Affect Integumentary: Yes: Warm - Diagnostic (1) Alcohol dependence with uncomplicated withdrawal Current Visit: Yes Status: Acute (2) Cocaine dependence Current Visit: Yes Status: Chronic Qualifiers: Substance use status: uncomplicated Qualified Code(s): F14.20 - Cocaine dependence, uncomplicated (3) Nicotine dependence Current Visit: Yes Status: Chronic Qualifiers: Nicotine product type: cigarettes Breathalyzer - Breathalyzer Breathalyzer: 0 Urine Drug Screen - Test Device Lot number: [id number] Expiration date: 08/28/20 - Control Is test valid?: Yes - Results Drug screen NEGATIVE: No Urine drug screen results: ALTAGRACIA-Cocaine, BZO-Benzodiazepines Inpatient Rehab Admission - Rehab Decision to Admit Inpatient rehab admission?: No
[2018-12-30] MEDS ORDERED: BISMUTH SUBSALICYLATE 524 MG/30 ML UD PO PRN (18:48)
[2018-12-30] MEDS ORDERED: MAGNESIUM CITRATE 300 ML BOTTLE PO PRN (18:48)
[2018-12-30] MEDS ORDERED: MENTHOL/PHENOL 1 EACH UD MM PRN (18:48)
[2018-12-30] MEDS ORDERED: NICOTINE POLACRILEX 2 MG GUM BUC PRN (18:48)
[2018-12-30] MEDS ORDERED: ACETAMINOPHEN 325 MG TABLET (FP) PO PRN ×2 (18:48)
[2018-12-30] MEDS ORDERED: IBUPROFEN 400 MG TABLET (FP) PO PRN (18:48)
[2018-12-30] MEDS ORDERED: MAG HYDROX/AL HYDROX/SIMETH 30 ML UNIT-DOSE CUP PO PRN (18:48)
[2018-12-30] MEDS ORDERED: MELATONIN 5 MG TABLETS PO PRN (18:48)
[2018-12-30] MEDS ORDERED: MAGNESIUM HYDROX 2400MG/30ML ORAL SUSPENSION 30 ML CUP PO PRN (18:48)
[2018-12-30] MEDS ORDERED: hydrOXYzine PAMOATE 25 MG CAPSULE (FP) PO PRN (18:48)
[2018-12-30] MEDS ORDERED: chlordiazePOXIDE HCL 10 MG CAPSULE PO PRN (18:51)
[2018-12-30] MEDS ORDERED: ALBUTEROL SO4 8 GM HFA INHALER IH PRN (18:52)
[2018-12-30] MEDS ORDERED: ALBUTEROL SO4 0.083% IH SOL 2.5 MG/3 ML VIAL.NEB. NEB PRN (18:58)
[2018-12-30] MEDS: THIAMINE HCL 100 MG TABLET (FP) PO SCH (23:25)
[2018-12-30] MEDS: chlordiazePOXIDE HCL 25 MG CAPSULE PO SCH (23:25)
[2018-12-31] MEDS: chlordiazePOXIDE HCL 25 MG CAPSULE PO SCH ×3 (07:05→22:40)
[2018-12-31] MEDS: metFORMIN HCL 500 MG TABLET (FP) PO SCH ×2 (07:05→17:37)
[2018-12-31] MEDS: INSULIN SLIDING SCALE (NOVOLOG) 1 VIAL SQ SCH ×2 (07:09→17:37)
[2018-12-31] MEDS: PRENATAL VITAMINS W/ FOLIC ACID TABLET (FP) PO SCH (10:39)
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
--- NOTE | 2018-12-31 15:06 | PN ---
S CIWA - CIWA Score Nausea/Vomitin-No Nausea/No Vomiting Muscle Tremors: 2 Anxiety: 4-Mod. Anxious/Guarded Agitation: 3 Paroxysmal Sweats: 1-Minimal Palms Moist Orientation: 0-Oriented Tacttile Disturbances: 0-None Auditory Disturbances: 0-None Visual Disturbances: 0-None Headache: 0-None Present CIWA-Ar Total Score: 10 BHS Progress Note (SOAP) Subjective: ANXIETY, IRRITABILITY, SLIGHT TREMORS, FEET ACHE.FATIGUE. REPORTS NO BOWEL MOVEMENT BUT NO SPECIFIC DURATION PATIENT IS AGITATED WHEN ASKED. Objective: 12/31/18 15:04 Vital Signs - 24 hr 12/30/18 12/30/18 12/31/18 15:15 21:28 00:30 Temperature 97 F L 98.2 F Pulse Rate 100 H 97 H Respiratory 18 20 18 Rate Blood Pressure 125/85 126/80 12/31/18 12/31/18 12/31/18 03:30 08:25 09:44 Temperature 97.7 F 98.9 F Pulse Rate 79 102 H Respiratory 18 20 18 Rate Blood Pressure 108/50 L 129/72 12/31/18 13:24 Temperature 98.1 F Pulse Rate 94 H Respiratory 18 Rate Blood Pressure 150/73 Laboratory Tests 12/30/18 12/31/18 18:27 06:50 POC Glucometer 136 POC Urine HCG, Qual Negative LE:NO SWELLING OR REDNESS NOTED. Assessment: 12/31/18 15:04 WITHDRAWAL SX Plan: CONTINUE DETOX D/W PT TO INCREASE PO FLUIDS MOTRIN PRN FOR PAIN.
[2018-12-31] MEDS: THIAMINE HCL 100 MG TABLET (FP) PO SCH (22:40)
[2019-01-01] MEDS: chlordiazePOXIDE 5 MG CAPSULE PO SCH ×2 (07:05→12:35)
[2019-01-01] MEDS: INSULIN SLIDING SCALE (NOVOLOG) 1 VIAL SQ SCH (07:06)
[2019-01-01] MEDS: metFORMIN HCL 500 MG TABLET (FP) PO SCH (07:17)
[2019-01-01 09:32] VITALS: BP 126/77; PULSE 102; TEMP 97.7
--- NOTE | 2019-01-01 10:53 | PN ---
S CIWA - CIWA Score Nausea/Vomitin-No Nausea/No Vomiting Muscle Tremors: 2 Anxiety: 3 Agitation: 2 Paroxysmal Sweats: 3 Orientation: 0-Oriented Tacttile Disturbances: 0-None Auditory Disturbances: 0-None Visual Disturbances: 0-None Headache: 0-None Present CIWA-Ar Total Score: 10 BHS Progress Note (SOAP) Subjective: c/o anxiety, sweats, and shakes. Objective: 01/01/19 10:51 Vital Signs 01/01/19 01/01/19 01/01/19 03:30 06:00 09:31 Temperature 98.2 F 97.7 F Pulse Rate 83 102 H Respiratory 18 20 16 Rate Blood Pressure 104/54 L 126/77 Assessment: 01/01/19 10:52 AOX3, in no acute respiratory distress Full ROM, ambulating in the unit with a wheelchair. withdrawal symptoms. 01/01/19 10:52 Plan: continue detox.
[2019-01-01] MEDS: PRENATAL VITAMINS W/ FOLIC ACID TABLET (FP) PO SCH (11:00)
--- NOTE | 2019-01-01 13:26 | DS ---
[facility] Detox Discharge Summary Admission Date: 12/30/18 Discharge Date: 01/01/19 (Pt left AMA) - History Present History: Alcohol Dependence, Cocaine Dependence Additional Comments: Pt left AMA. Pt states she has a court date coming up and also she has to go home and take care of her 3kids ages 8yrs, 6yrs, and a 9month old. Attempt to let pt stay and complete her detox protocol failed. Pt states she will follow- up at [facility]. Pt is also encouraged to follow-up with her PMD. Pt states she has refills for her medications at [facility]. Pt is alert and oriented x3 and in no acute respiratory distress. Pertinent Past History: H/O DM, asthma, and alcohol used disorder. - Physical Exam Results Vital Signs: Vital Signs Temperature 97.7 F 01/01/19 09:31 Pulse Rate 102 H 01/01/19 09:31 Respiratory Rate 16 01/01/19 09:31 Blood Pressure 126/77 01/01/19 09:31 O2 Sat by Pulse Oximetry (%) Vital Signs - 24 hr 12/31/18 12/31/18 01/01/19 17:41 21:45 00:30 Temperature 97 F L 97.7 F Pulse Rate 91 H 67 Respiratory 18 16 18 Rate Blood Pressure 136/75 136/74 01/01/19 01/01/19 01/01/19 03:30 06:00 09:31 Temperature 98.2 F 97.7 F Pulse Rate 83 102 H Respiratory 18 20 16 Rate Blood Pressure 104/54 L 126/77 Laboratory Last Values POC Glucometer 143 UNITS (80-120) 01/01/19 06:26 POC Urine HCG, Qual Negative 12/30/18 18:27 Laboratory Results - last 24 hr 12/31/18 01/01/19 16:33 06:26 POC Glucometer 209 143 Pertinent Admission Physical Exam Findings: Withdrawal symptoms. - Treatment Hospital Course: Detox Protocol Followed - Medication Discharge Medications: Ambulatory Orders Albuterol Sulfate Inhaler - [Ventolin HFA Inhaler -] 2 inh IH Q4H PRN 11/25/14 Metformin HCl [Glucophage] 500 mg PO BID 05/28/18 Olanzapine [Zyprexa] 10 mg PO HS 12/30/18 - Diagnosis (1) Alcohol dependence with uncomplicated withdrawal Current Visit: Yes Status: Acute (2) Cocaine dependence Current Visit: Yes Status: Acute Qualifiers: Substance use status: uncomplicated Qualified Code(s): F14.20 - Cocaine dependence, uncomplicated (3) Asthma Current Visit: No Status: Chronic Qualifiers: Asthma severity: mild Asthma persistence: unspecified Asthma complication type: uncomplicated Qualified Code(s): J45.909 - Unspecified asthma, uncomplicated (4) Obesity (BMI 30-39.9) Current Visit: No Status: Chronic (5) Type 2 diabetes mellitus Current Visit: No Status: Chronic Qualifiers: Diabetes mellitus outsole scheduler insulin use: without outsole scheduler use - AMA Did Patient Leave Against Medical Advice: Yes
[2019-01-02] MEDS ORDERED: chlordiazePOXIDE HCL 10 MG CAPSULE PO PRN
[2019-01-02] MEDS ORDERED: chlordiazePOXIDE HCL 10 MG CAPSULE PO SCH (05:00)
[2019-01-03] MEDS ORDERED: chlordiazePOXIDE HCL 10 MG CAPSULE PO ONE (05:00)
== END 2019-01-01 13:55 | disposition left against medical advice (07) | DRG 770 ==
LOC: YASAS 14:54 → Y6N 19:32
PROVIDERS: ADMIT Surgery; ATTEND Surgery
PROC: HZ2ZZZZ Detoxification Services for Substance Abuse Treatment (ICD-10-PCS; principal; 2018-12-30)
DX: F10.230 Alcohol dependence with withdrawal, uncomplicated (principal); F13.20 Sedative, hypnotic or anxiolytic dependence, uncomplicated; F14.20 Cocaine dependence, uncomplicated; D32.9 Benign neoplasm of meninges, unspecified; I10 Essential (primary) hypertension; E11.9 Type 2 diabetes mellitus without complications; Z79.4 Long term (current) use of insulin; J45.909 Unspecified asthma, uncomplicated; E66.9 Obesity, unspecified; Z68.38 Body mass index [BMI] 38.0-38.9, adult; Z86.19 Personal history of other infectious and parasitic diseases; Z88.0 Allergy status to penicillin; Z88.8 Allergy status to other drugs, medicaments and biological substances
CPT/HCPCS: 81025; 82962

== ENCOUNTER 2019-01-05 10:15 | Inpatient (IN) | payer OTHER ==
[2019-01-05 11:30] VITALS: BP 144/93; PULSE 114; TEMP 97.2; BMI 38.6
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
[2019-01-05] MEDS ORDERED: NICOTINE POLACRILEX 2 MG GUM BC PRN (14:25)
[2019-01-05] MEDS ORDERED: MENTHOL/PHENOL 1 EACH UD MM PRN (14:25)
[2019-01-05] MEDS ORDERED: MAG HYDROX/AL HYDROX/SIMETH 30 ML UNIT-DOSE CUP PO PRN (14:25)
[2019-01-05] MEDS ORDERED: ACETAMINOPHEN 325 MG TABLET (FP) PO PRN (14:25)
[2019-01-05] MEDS ORDERED: MAGNESIUM CITRATE 300 ML BOTTLE PO PRN (14:25)
[2019-01-05] MEDS ORDERED: P-EPHED 60MG/TRIPROLIDI 2.5MG TABLET PO PRN (14:25)
[2019-01-05] MEDS ORDERED: IBUPROFEN 400 MG TABLET (FP) PO PRN (14:25)
[2019-01-05] MEDS ORDERED: LOPERAMIDE HCL 2 MG CAPSULE PO PRN (14:25)
[2019-01-05] MEDS ORDERED: hydrOXYzine PAMOATE 50 MG CAPSULE (FP) PO PRN (14:25)
[2019-01-05] MEDS ORDERED: guaiFENesin 200 MG/10 ML 10 ML UNIT-DOSE CUPS PO PRN (14:25)
[2019-01-05] MEDS ORDERED: MAGNESIUM HYDROX 2400MG/30ML ORAL SUSPENSION 30 ML CUP PO PRN (14:25)
[2019-01-05] MEDS ORDERED: ALBUTEROL SO4 8 GM HFA INHALER IH PRN (14:29)
[2019-01-05] MEDS ORDERED: ALBUTEROL SO4 2.5/IPRATROPIUM 0.5 INH SOL 3 ML VIAL.NEB. NEB ONE (16:04)
[2019-01-05] MEDS ORDERED: ALBUTEROL SO4 0.083% IH SOL 2.5 MG/3 ML VIAL.NEB. NEB PRN (16:34)
[2019-01-05 16:55] LABS: ALBUMIN 3.5 g/dl (3.4-5.0); BILIRUBIN,TOTAL 0.3 mg/dL (0.2-1); BLOOD UREA NITROGEN 6.6 mg/dL (7-18); CALCIUM 8.9 mg/dL (8.5-10.1); CREATININE 0.8 mg/dL (0.55-1.3); HEMATOCRIT 35.6 % (32.4-45.2); HEMOGLOBIN 11.9 GM/dL (10.7-15.3); MCH 28.3 pg (25.7-33.7); MCHC 33.5 g/dl (32.0-36.0); MEAN CELL VOLUME 84.4 fl (80-96); MEAN PLT VOLUME 7.5 fl (7.5-11.1); PLATELET COUNT 360 K/MM3 (134-434); POTASSIUM 3.7 mmol/L (3.5-5.1); RBC 4.22 M/mm3 (3.60-5.2); RDW 14.6 % (11.6-15.6)
[2019-01-05] MEDS: metFORMIN HCL 500 MG TABLET (FP) PO SCH (17:15)
[2019-01-05] MEDS ORDERED: INSULIN (NOVOLOG) ASPART 100 UNITS/ML 10ML VIAL ONE ×2 (19:09→22:09)
[2019-01-05] MEDS: INSULIN SLIDING SCALE (NOVOLOG) 1 VIAL SQ SCH ×2 (19:10→21:46)
[2019-01-05] MEDS ORDERED: PT OWN MED DRAWER 7, Y5N ONE (21:40)
[2019-01-05] MEDS ORDERED: MELATONIN 5 MG TABLETS PO PRN (22:00)
[2019-01-05] MEDS ORDERED: THIAMINE HCL 100 MG TABLET (FP) PO SCH (22:00)
[2019-01-06] MEDS: INSULIN SLIDING SCALE (NOVOLOG) 1 VIAL SQ SCH ×2 (07:34→11:45)
[2019-01-06] MEDS: metFORMIN HCL 500 MG TABLET (FP) PO SCH (07:34)
[2019-01-06] MEDS ORDERED: PRENATAL VITAMINS W/ FOLIC ACID TABLET (FP) PO SCH (10:00)
[2019-01-06] MEDS ORDERED: NICOTINE 21 MG/24 HOURS TOPICAL PATCH TD SCH (10:00)
--- NOTE | 2019-01-06 13:53 | PN ---
[facility] Progress Note (SOAP) Subjective: PT C/O HEAD COLD-NASAL CONGESTION AND COUGH WITH "LOTS OF SPUTUM" AND "WHEEZING ". Objective: 01/06/19 13:47 Vital Signs - 24 hr 01/06/19 01/06/19 00:30 03:30 Respiratory 20 18 Rate Vital Signs (72 hours) 01/05/19 01/06/19 01/06/19 11:15 00:30 03:30 Temperature 97.2 F L Pulse Rate 114 H Respiratory 20 20 18 Rate Blood Pressure 144/93 Laboratory Tests 01/05/19 01/05/19 01/05/19 12:09 12:31 14:50 WBC 14.0 H RBC 4.22 Hgb 11.9 Hct 35.6 MCV 84.4 MCH 28.3 MCHC 33.5 RDW 14.6 D Plt Count 360 D MPV 7.5 Sodium Potassium Chloride Carbon Dioxide Anion Gap BUN Creatinine Est GFR (CKD-EPI)AfAm Est GFR (CKD-EPI)NonAf POC Glucometer 232 Random Glucose Calcium Total Bilirubin AST ALT Alkaline Phosphatase Total Protein Albumin POC Urine HCG, Qual Negative RPR Titer HIV 1&2 Antibody Screen HIV P24 Antigen 01/05/19 01/05/19 01/05/19 14:50 14:50 14:50 WBC RBC Hgb Hct MCV MCH MCHC RDW Plt Count MPV Sodium 138 Potassium 3.7 Chloride 102 Carbon Dioxide 28 Anion Gap 8 BUN 6.6 L Creatinine 0.8 Est GFR (CKD-EPI)AfAm 114.66 Est GFR (CKD-EPI)NonAf 98.93 POC Glucometer Random Glucose 189 H Calcium 8.9 Total Bilirubin 0.3 AST 9 L ALT 37 Alkaline Phosphatase 88 Total Protein 7.0 Albumin 3.5 POC Urine HCG, Qual RPR Titer Nonreactive HIV 1&2 Antibody Screen Negative HIV P24 Antigen Negative 01/05/19 01/05/19 01/06/19 19:08 22:04 05:30 WBC RBC Hgb Hct MCV MCH MCHC RDW Plt Count MPV Sodium Potassium Chloride Carbon Dioxide Anion Gap BUN Creatinine Est GFR (CKD-EPI)AfAm Est GFR (CKD-EPI)NonAf POC Glucometer 220 219 136 Random Glucose Calcium Total Bilirubin AST ALT Alkaline Phosphatase Total Protein Albumin POC Urine HCG, Qual RPR Titer HIV 1&2 Antibody Screen HIV P24 Antigen 01/06/19 11:47 WBC RBC Hgb Hct MCV MCH MCHC RDW Plt Count MPV Sodium Potassium Chloride Carbon Dioxide Anion Gap BUN Creatinine Est GFR (CKD-EPI)AfAm Est GFR (CKD-EPI)NonAf POC Glucometer 120 Random Glucose Calcium Total Bilirubin AST ALT Alkaline Phosphatase Total Protein Albumin POC Urine HCG, Qual RPR Titer HIV 1&2 Antibody Screen HIV P24 Antigen CARDIAC:S1 S2 RRR LUNGS:NO WHEEZING ; SLIGHT RHONCHI ON LEFT UPPER LUNG BASE. Assessment: 01/06/19 13:48 URI NASAL CONGESTION COUGH HX ASTHMA WITH SOME EXACERBATION Plan: MUCINEX DM DIRECTED. ASTHMA NEBULIZER TREATMENT DIRECTED. SALINE NASAL SPRAY INCREASE PO FLUIDS TOLERATED.
[2019-01-06] MEDS ORDERED: SODIUM CHLORIDE NASAL SPRAY 44 ML BOTTLE NS SCH (14:00)
[2019-01-06] MEDS ORDERED: ALBUTEROL SO4 0.083% IH SOL 2.5 MG/3 ML VIAL.NEB. NEB SCH (14:00)
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
[2019-01-06] MEDS ORDERED: guaiFENesin/D-METHORPHAN TAB.ER.12H PO SCH (14:30)
--- NOTE | 2019-01-06 14:36 | PN ---
[facility] Progress Note (SOAP) Subjective: Patient is leaving AMA without completing rehab. States she does not want to be here; was admitted on 01/05, leaving on 01/06 attended one group, refused to talk to counselor. She left the unit without seeing this provider, who saw her briefly in the security department. Objective: PE: this limited because the patient refused physical examination and left the unit. She was seen briefly in security, but a complete physical exam could not be conducted. A+Ox3, Full ROM, ambulates w/o hesitancy, skin clear. 01/06/19 14:37 CBC, BMP 01/05/19 14:50 01/05/19 14:50 Vital Signs (72 hours) 01/05/19 01/06/19 01/06/19 11:15 00:30 03:30 Temperature 97.2 F L Pulse Rate 114 H Respiratory 20 20 18 Rate Blood Pressure 144/93 Assessment: Medically stable for discharge Discharge Dx: Cocaine dependence, chronic Asthma Cannabis dependence, chronic 01/06/19 14:38 01/06/19 14:39 Plan: patient will seek aftercare and medical care at [facility]. She reports that she does not need any prescriptions transmitted to her pharmacy.
== END 2019-01-06 14:26 | disposition left against medical advice (07) | DRG 770 ==
LOC: YASAS 10:15 → Y3E 15:08
PROVIDERS: ADMIT Neuromusculoskeletal Medicine & OMM; ATTEND Neuromusculoskeletal Medicine & OMM
PROC: HZ42ZZZ Group Counseling for Substance Abuse Treatment, Cognitive-Behavioral (ICD-10-PCS; principal; 2019-01-05)
DX: F10.20 Alcohol dependence, uncomplicated (principal); F14.20 Cocaine dependence, uncomplicated; F12.20 Cannabis dependence, uncomplicated; F19.24 Other psychoactive substance dependence with psychoactive substance-induced mood disorder; F31.9 Bipolar disorder, unspecified; F32.9 Major depressive disorder, single episode, unspecified; I10 Essential (primary) hypertension; J45.909 Unspecified asthma, uncomplicated; J06.9 Acute upper respiratory infection, unspecified; E11.9 Type 2 diabetes mellitus without complications; E66.9 Obesity, unspecified; Z68.38 Body mass index [BMI] 38.0-38.9, adult; Z79.84 Long term (current) use of oral hypoglycemic drugs
CPT/HCPCS: 36415; 80053; 81025; 82962; 85027; 86593; 87389; 94640